=== PATIENT | female | born 1935 | race Caucasian/White ===

== ENCOUNTER 2019-07-10 12:00 | Emergency (ER) | payer OTHER, SELFPAY ==
[2019-07-10 12:07] VITALS: BP 157/78; PULSE 73; RESP 18; TEMP 36.6; O2SAT 99; BMI 36.6
--- NOTE | 2019-07-10 12:11 | DI.RAD.S_ITS ---
PROCEDURE: XR ACUTE ABDOMEN SERIES INDICATIONS: abd pain TECHNIQUE: One view chest and two views of the abdomen were acquired. COMPARISON: None. FINDINGS: Surgical changes and devices: None. Chest: Lungs are clear. Heart size is normal. No pleural effusions. No pneumoperitoneum. Abdomen: Bowel gas pattern is normal. No suspicious calcifications. Visualized solid organ contours appear normal. Bones: No suspicious bony lesions. IMPRESSION: Nonspecific bowel gas pattern, source of her abdominal pain is not seen. Dictated by: Gray Vaughan M.D. on 07/10/2019 at 13:16 Approved by: Gray Vaughan M.D. on 07/10/2019 at 13:16
[2019-07-10 12:24] LABS: Add Manual Diff / Slide Review NO; Basophils Absolute Auto 0 /uL (0-100); Basophils Percent Auto 0.6 % (0-2); Eosinophils Absolute Auto 100 /uL (0-450); Eosinophils Percent Auto 1.6 % (2-4); Hematocrit 41.7 % (36-46); Lymphocytes Absolute Auto 1700 /uL (1100-4500); Lymphocytes Percent Auto 24.6 % (25-40); Mean Corpuscular HGB Conc 33.6 % (30-36); Mean Corpuscular Hemoglobin 29.5 PG (26-34); Mean Corpuscular Volume 87.9 fL (80-100); Monocytes Absolute Auto 600 /uL (0-900); Monocytes Percent Auto 8.7 % (3-14); Neutrophils Absolute Auto 4400 /uL (1500-7000); Neutrophils Percent Auto 64.5 % (50-75); Platelet Count 273 X10^3/uL (150-400); Red Blood Cell Count 4.74 X10^6/uL (4.0-5.2); Red Cell Distribution Width 13.5 % (11.6-14.8); White Blood Cell Count 6.8 X10^3/uL (4.5-11.0)
[2019-07-10 12:35] LABS: Alanine Aminotransferase 18 IU/L (<35); Albumin 4.5 g/dL (3.5-5.0); Albumin Globulin Ratio 1.5 (1.0-2.8); Alkaline Phosphatase 56 U/L (38-126); Amylase 100 U/L (30-110); Aspartate Aminotransferase 49 IU/L (14-36); BUN Creatinine Ratio 13.3 (6-22); Bilirubin Total 0.8 mg/dL (0.2-1.3); Blood Urea Nitrogen 16 mg/dL (7-17); Calcium 9.2 mg/dL (8.4-10.2); Carbon Dioxide 24 mmol/L (22-32); Chloride 105 mmol/L (98-107); Creatine Kinase 53 U/L (30-135); Estimated Glomerular Filt Rate 43.1 mL/min (>60); Glucose 112 mg/dL (80-110); Lipase 93 U/L (23-300); Potassium 4.3 mmol/L (3.4-5.1); Total Protein 7.5 g/dL (6.3-8.2)
[2019-07-10 12:37] LABS: HEMOLYSIS 131 (0-50)
[2019-07-10 12:38] LABS: Sodium 137 mmol/L (137-145)
[2019-07-10 12:47] LABS: Troponin I < 0.012 ng/mL (0.01-0.034)
[2019-07-10] MEDS: SODIUM CHLORIDE 0.9% 1,000 ML 1000 ML IV (12:56)
[2019-07-10 13:00] VITALS: BP 165/80; PULSE 62; RESP 17; O2SAT 98
[2019-07-10 13:28] LABS: Bacteria Urine Moderate (10-30); Culture Indicated Urine Specimen Cultured; RBC Urine 0-1/HPF (0-5/HPF); Squamous Epithelial Cell Urine 1-5 /HPF (0-5/HPF); WBC Urine 5-10/HPF (0-5/HPF)
--- NOTE | 2019-07-10 13:33 | ED_ITS ---
HPI - Nausea/Vomiting/Diarrhea <DOROTEO Smith - Last Filed: 07/10/19 20:33> General Chief complaint: Nausea/Vomiting/Diarrhea Stated complaint: Suffering from Diarrhea, feeling week Time Seen by Provider: 07/10/19 12:03 Source: patient Mode of arrival: Wheelchair Limitations: no limitations History of Present Illness HPI Narrative: The patient is an 83-year-old female with history of hypothyroid who presents with a chief complaint of diarrhea for the past month. She woke up today feeling weak. She states she has had anywhere from 4-6 episodes of diarrhea per day. She has not taken anything to feel better. She has not seen a healthcare provider since her diarrhea started a month ago. She denies any fevers, abdominal pain, nausea or vomiting. She denies any chest pain or shortness of breath. She denies any dysuria urgency or frequency. She denies any falls or trauma, denies any blurry vision, weakness, numbness or tingling Related Data Home Medications Medication Instructions Recorded Confirmed Vitamin B-12 1 tab PO DAILY 07/10/19 07/10/19 Vitamin C 1 tab PO DAILY 07/10/19 07/10/19 Vitamin D3 1 cap PO DAILY 07/10/19 07/10/19 levothyroxine 50 mcg PO DAILY 07/10/19 07/10/19 multivitamin 1 tab PO DAILY 07/10/19 07/10/19 Previous Rx's Medication Instructions Recorded sulfamethoxazole-trimethoprim 1 tab PO BID #10 tab 07/10/19 [Bactrim DS] Allergies Allergy/AdvReac Type Severity Reaction Status Date / Time Penicillins Allergy Verified 07/10/19 12:07 Review of Systems <OLIVIA Smith - Last Filed: 07/10/19 20:33> Review of Systems Narrative: GENERAL: See HPI HEENT: Denies sinus pain, ear pain, sore throat, difficulty swallowing, dizziness. RESPIRATORY: Denies dyspnea, cough, wheezing, hemoptysis, sputum. CARDIOVASCULAR: Denies chest pain, palpitations, orthopnea, edema, GASTROINTESTINAL: See HPI : Denies dysuria, frequency, incontinence, hematuria, urinary retention. MUSCULOSKELETAL: denies weakness, joint pain, or bony pain SKIN: Denies rash, skin lesions, or other NEUROLOGIC: Denies weakness, headache, numbness, change in speech, confusion, seizures, incoordination. PSYCHIATRIC: No concerning psychosocial issues. 12 point review of systems is negative except for those stated above Patient History <DOROTEO Smith - Last Filed: 07/10/19 20:33> Medical History (Updated 07/10/19 @ 16:27 by DOROTEO Smith) Hypothyroid (Acute) Exam <DOROTEO Smith - Last Filed: 07/10/19 20:33> Narrative Exam Narrative: GENERAL: This is a well-nourished, well-developed patient, in no acute distress needing HEAD: Atraumatic. Normocephalic. No temporal or scalp tenderness. EYES: Pupils equal round and reactive. Extraocular motions intact. No scleral icterus. No injection or drainage. ENT: Nose without bleeding, purulent drainage or septal hematoma. Throat without erythema, tonsillar hypertrophy or exudate. Uvula midline. Airway patent. NECK: Trachea midline. No JVD or lymphadenopathy. Supple, nontender, no meningeal signs. CARDIOVASCULAR: Regular rate and rhythm RESPIRATORY: Clear to auscultation. Breath sounds equal bilaterally. No wheezes, rales, or rhonchi. No cough. No increased respiratory effort. No accessory muscle use. GASTROINTESTINAL: Abdomen soft, non-tender, nondistended. No hepato- splenomegaly, or palpable masses. No guarding. Active bowel sounds all 4 quadrants. EXTREMITIES: No clubbing, cyanosis, or edema. No joint tenderness, effusion, or edema noted. BACK: Nontender without deformity or crepitance. No flank tenderness. NEURO: AOx3. SKIN: No rash or erythema. Initial Vital Signs Initial Vital Signs: Vital Signs Temperature 97.8 F 07/10/19 12:07 Pulse Rate 73 07/10/19 12:07 Respiratory Rate 18 07/10/19 12:07 Blood Pressure 157/78 H 07/10/19 12:07 Pulse Oximetry 99 07/10/19 12:07 <Anca Demarco MD - Last Filed: 07/13/19 08:53> Initial Vital Signs Initial Vital Signs: Vital Signs Temperature 97.8 F 07/10/19 12:07 Pulse Rate 73 07/10/19 12:07 Respiratory Rate 18 07/10/19 12:07 Blood Pressure 157/78 H 07/10/19 12:07 Pulse Oximetry 99 07/10/19 12:07 Course <DOROTEO Smith - Last Filed: 07/10/19 20:33> Orders Ordered: Discontinued Medications Sodium Chloride (Normal Saline 0.9%) 1,000 mls @ 1,000 mls/hr IV BOLUS ONE Stop: 07/10/19 13:10 Last Infusion: 07/10/19 15:06 Dose: 0 mls/hr Documented by: Admin: 07/10/19 12:56 Dose: 1,000 mls/hr Documented by: OSMAR Ondansetron HCl (Zofran) 4 mg IV NOW ONE Stop: 07/10/19 12:12 Last Admin: 07/10/19 12:56 Dose: Not Given Documented by: OSMAR Vital Signs Vital signs: Vital Signs - 8 hr 07/10/19 13:00 07/10/19 14:00 07/10/19 16:12 Pulse Rate 62 67 62 Respiratory Rate 17 20 16 Blood Pressure Blood Pressure [Left Arm] 165/80 H 142/72 H 148/76 H Pulse Oximetry 98 100 100 07/10/19 16:41 Pulse Rate 67 Respiratory Rate 15 Blood Pressure 148/76 H Blood Pressure [Left Arm] Pulse Oximetry 99 <Anca Demarco MD - Last Filed: 07/13/19 08:53> Orders Ordered: Discontinued Medications Sodium Chloride (Normal Saline 0.9%) 1,000 mls @ 1,000 mls/hr IV BOLUS ONE Stop: 07/10/19 13:10 Last Infusion: 07/10/19 15:06 Dose: 0 mls/hr Documented by: Admin: 07/10/19 12:56 Dose: 1,000 mls/hr Documented by: OSMAR Ondansetron HCl (Zofran) 4 mg IV NOW ONE Stop: 07/10/19 12:12 Last Admin: 07/10/19 12:56 Dose: Not Given Documented by: OSMAR Vital Signs Vital signs: Vital Signs - 8 hr 07/10/19 13:00 07/10/19 14:00 07/10/19 16:12 Pulse Rate 62 67 62 Respiratory Rate 17 20 16 Blood Pressure Blood Pressure [Left Arm] 165/80 H 142/72 H 148/76 H Pulse Oximetry 98 100 100 07/10/19 16:41 Pulse Rate 67 Respiratory Rate 15 Blood Pressure 148/76 H Blood Pressure [Left Arm] Pulse Oximetry 99 MDM - Nausea/Vomiting/Diarrhea <Sulma Fernandez, COTTON TIPPER- - Last Filed: 07/10/19 20:33> Lab Data Result diagrams: 07/10/19 12:15 07/10/19 12:15 Labs: Lab Results 07/10/19 07/10/19 07/10/19 Range/Units 12:15 12:15 13:00 WBC 6.8 (4.5-11.0) X10^3/uL RBC 4.74 (4.0-5.2) X10^6/uL Hgb 14.0 (12.0-16.0) g/dL Hct 41.7 (36-46) % MCV 87.9 (80-100) fL MCH 29.5 (26-34) PG MCHC 33.6 (30-36) % RDW 13.5 (11.6-14.8) % Plt Count 273 (150-400) X10^3/uL Neut % (Auto) 64.5 (50-75) % Lymph % (Auto) 24.6 L (25-40) % Dunn % (Auto) 8.7 (3-14) % Eos % (Auto) 1.6 L (2-4) % Baso % (Auto) 0.6 (0-2) % Neut # (Auto) 4400 (2619-7809) /uL Lymph # (Auto) 1700 (5549-7326) /uL Dunn # (Auto) 600 (0-900) /uL Eos # (Auto) 100 (0-450) /uL Baso # (Auto) 0 (0-100) /uL Sodium 137 (137-145) mmol/L Potassium 4.3 (3.4-5.1) mmol/L Chloride 105 (98-107) mmol/L Carbon Dioxide 24 (22-32) mmol/L BUN 16 (7-17) mg/dL Creatinine 1.20 H (0.52-1.04) mg/dL Estimated GFR 43.1 L (>60) mL/min BUN/Creatinine Ratio 13.3 (6-22) Glucose 112 H (80-110) mg/dL Calcium 9.2 (8.4-10.2) mg/dL Total Bilirubin 0.8 (0.2-1.3) mg/dL AST 49 H (14-36) IU/L ALT 18 (<35) IU/L Alkaline Phosphatase 56 (38-126) U/L Total Creatine Kinase 53 (30-135) U/L CK-MB (CK-2) TNP CK-MB (CK-2) Rel Index TNP Troponin I < 0.012 (0.01-0.034) ng/mL Total Protein 7.5 (6.3-8.2) g/dL Albumin 4.5 (3.5-5.0) g/dL Globulin 3.0 (1.7-4.1) g/dL Albumin/Globulin Ratio 1.5 (1.0-2.8) Amylase 100 (30-110) U/L Lipase 93 (23-300) U/L Urine RBC 0-1/hpf (0-5/HPF) Urine WBC 5-10/hpf H (0-5/HPF) Ur Squamous Epith Cells 1-5 /hpf (0-5/HPF) Urine Bacteria Moderate (10-30) H (None) Ur Culture Indicated? Specimen cultured Stool Occult Blood (Negative) Stl C. cayetanensis PCR (Not Detect) Stool Rotavirus (PCR) (Not Detect) Stool Adenovirus (PCR) (Not Detect) Stool Astrovirus (PCR) (Not Detect) Stool Cryptosporidium PCR (Not Detect) Stl E.coli Shiga Tox PCR (Not Detect) St Sh/Enteroin Ecoli PCR (Not Detect) Stool E coli O157 PCR Stl Enterotoxigenic E PCR (Not Detect) Stool EPEC (PCR) (Not Detect) Stl E. histolytica PCR (Not Detect) Stool Giardia Lamblia PCR (Not Detect) Stool Sapovirus (PCR) (Not Detect) Stl P. shigelloides PCR (Not Detect) St Y.enterocolitica PCR (Not Detect) Stool Vibrio (PCR) (Not Detect) Stl Vibrio cholerae PCR (Not Detect) Stl Enteroaggr Ecoli PCR (Not Detect) Stl Norovirus GI/GII PCR (Not Detect) Campylobacter (PCR) (Not Detect) C. difficile Tox (PCR) (Not Detect) Salmonella (PCR) (Not Detect) 07/10/19 07/10/19 Range/Units 14:05 14:13 WBC (4.5-11.0) X10^3/uL RBC (4.0-5.2) X10^6/uL Hgb (12.0-16.0) g/dL Hct (36-46) % MCV (80-100) fL MCH (26-34) PG MCHC (30-36) % RDW (11.6-14.8) % Plt Count (150-400) X10^3/uL Neut % (Auto) (50-75) % Lymph % (Auto) (25-40) % Dunn % (Auto) (3-14) % Eos % (Auto) (2-4) % Baso % (Auto) (0-2) % Neut # (Auto) (3908-2952) /uL Lymph # (Auto) (1145-1444) /uL Dunn # (Auto) (0-900) /uL Eos # (Auto) (0-450) /uL Baso # (Auto) (0-100) /uL Sodium (137-145) mmol/L Potassium (3.4-5.1) mmol/L Chloride (98-107) mmol/L Carbon Dioxide (22-32) mmol/L BUN (7-17) mg/dL Creatinine (0.52-1.04) mg/dL Estimated GFR (>60) mL/min BUN/Creatinine Ratio (6-22) Glucose (80-110) mg/dL Calcium (8.4-10.2) mg/dL Total Bilirubin (0.2-1.3) mg/dL AST (14-36) IU/L ALT (<35) IU/L Alkaline Phosphatase (38-126) U/L Total Creatine Kinase (30-135) U/L CK-MB (CK-2) CK-MB (CK-2) Rel Index Troponin I (0.01-0.034) ng/mL Total Protein (6.3-8.2) g/dL Albumin (3.5-5.0) g/dL Globulin (1.7-4.1) g/dL Albumin/Globulin Ratio (1.0-2.8) Amylase (30-110) U/L Lipase (23-300) U/L Urine RBC (0-5/HPF) Urine WBC (0-5/HPF) Ur Squamous Epith Cells (0-5/HPF) Urine Bacteria (None) Ur Culture Indicated? Stool Occult Blood Negative (Negative) Stl C. cayetanensis PCR Not detected (Not Detect) Stool Rotavirus (PCR) Not detected (Not Detect) Stool Adenovirus (PCR) Not detected (Not Detect) Stool Astrovirus (PCR) Not detected (Not Detect) Stool Cryptosporidium PCR Not detected (Not Detect) Stl E.coli Shiga Tox PCR Not detected (Not Detect) St Sh/Enteroin Ecoli PCR Not detected (Not Detect) Stool E coli O157 PCR Not Reportable Stl Enterotoxigenic E PCR Not detected (Not Detect) Stool EPEC (PCR) Not detected (Not Detect) Stl E. histolytica PCR Not detected (Not Detect) Stool Giardia Lamblia PCR Not detected (Not Detect) Stool Sapovirus (PCR) Not detected (Not Detect) Stl P. shigelloides PCR Not detected (Not Detect) St Y.enterocolitica PCR Not detected (Not Detect) Stool Vibrio (PCR) Not detected (Not Detect) Stl Vibrio cholerae PCR Not detected (Not Detect) Stl Enteroaggr Ecoli PCR Not detected (Not Detect) Stl Norovirus GI/GII PCR Not detected (Not Detect) Campylobacter (PCR) Not detected (Not Detect) C. difficile Tox (PCR) Not detected (Not Detect) Salmonella (PCR) Not detected (Not Detect) Urine Dip Bedside Urine Glucose Negative Bedside Urine Bilirubin - Negative Bedside Urine Ketone - Negative Urine Specific Laurel 1.010 Bedside Urine Occult Blood - Negative Bedside Urine pH 6.0 Bedside Urine Protein - Negative Bedside Urine Urobilinogen - Negative Bedside Urine Nitrite - Negative Bedside Urine Leukocytes ++ 125 Esterase Imaging Data Abdominal x-ray: Radiologist's impression: [address] [address] XRay Report Signed Patient: Yoana Hill CMR#: [id number] : [id number]:[id number] Age/Sex: 83 / FDate of Service: 07/10/19 Loc: ED Accession Number: [id number] Procedure: XR acute abdomen series Ordering Provider: Sulma Fernandez PROCEDURE: XR ACUTE ABDOMEN SERIES INDICATIONS: abd pain TECHNIQUE: One view chest and two views of the abdomen were acquired. COMPARISON: None. FINDINGS: Surgical changes and devices: None. Chest: Lungs are clear. Heart size is normal. No pleural effusions. No pneumoperitoneum. Abdomen: Bowel gas pattern is normal. No suspicious calcifications. Visualized solid organ contours appear normal. Bones: No suspicious bony lesions. IMPRESSION: Nonspecific bowel gas pattern, source of her abdominal pain is not seen. Dictated by: Gray Vaughan M.D. on 07/10/2019 at 13:16 Approved by: Gray Vaughan M.D. on 07/10/2019 at 13:16 [facility] Narrative Medical decision making narrative: The patient is an 83-year-old female who presents with a chief complaint of generalized weakness, diarrhea for a month. Her lab work is grossly normal, she has no leukocytosis, no abdominal pain on exam urine is concerning for infection so she was placed on Bactrim. I discussed that her creatinine was the high end of normal, we do not have any records on her she just moved. Encourage PCP follow-up as soon as possible. Did give her contact information for the [facility] health human resource statistician. She has an overall benign exam, has no signs of systemic illness, is afebrile. She does not have an acute abdomen. Her diarrhea started immediately after she moved to the area, so she wonders if it is related to an exposure to new water or food. I encouraged her to follow up with primary care provider. Patient has no questions or concerns upon discharge and states understanding of return precautions as well as follow-up care. Discussed coming back for signs of systemic illness, abdominal pain with fever etc <Anca Demarco MD - Last Filed: 07/13/19 08:53> Lab Data Labs: Lab Results 07/10/19 07/10/19 07/10/19 Range/Units 12:15 12:15 13:00 WBC 6.8 (4.5-11.0) X10^3/uL RBC 4.74 (4.0-5.2) X10^6/uL Hgb 14.0 (12.0-16.0) g/dL Hct 41.7 (36-46) % MCV 87.9 (80-100) fL MCH 29.5 (26-34) PG MCHC 33.6 (30-36) % RDW 13.5 (11.6-14.8) % Plt Count 273 (150-400) X10^3/uL Neut % (Auto) 64.5 (50-75) % Lymph % (Auto) 24.6 L (25-40) % Dunn % (Auto) 8.7 (3-14) % Eos % (Auto) 1.6 L (2-4) % Baso % (Auto) 0.6 (0-2) % Neut # (Auto) 4400 (0272-8228) /uL Lymph # (Auto) 1700 (8862-7975) /uL Dunn # (Auto) 600 (0-900) /uL Eos # (Auto) 100 (0-450) /uL Baso # (Auto) 0 (0-100) /uL Sodium 137 (137-145) mmol/L Potassium 4.3 (3.4-5.1) mmol/L Chloride 105 (98-107) mmol/L Carbon Dioxide 24 (22-32) mmol/L BUN 16 (7-17) mg/dL Creatinine 1.20 H (0.52-1.04) mg/dL Estimated GFR 43.1 L (>60) mL/min BUN/Creatinine Ratio 13.3 (6-22) Glucose 112 H (80-110) mg/dL Calcium 9.2 (8.4-10.2) mg/dL Total Bilirubin 0.8 (0.2-1.3) mg/dL AST 49 H (14-36) IU/L ALT 18 (<35) IU/L Alkaline Phosphatase 56 (38-126) U/L Total Creatine Kinase 53 (30-135) U/L CK-MB (CK-2) TNP CK-MB (CK-2) Rel Index TNP Troponin I < 0.012 (0.01-0.034) ng/mL Total Protein 7.5 (6.3-8.2) g/dL Albumin 4.5 (3.5-5.0) g/dL Globulin 3.0 (1.7-4.1) g/dL Albumin/Globulin Ratio 1.5 (1.0-2.8) Amylase 100 (30-110) U/L Lipase 93 (23-300) U/L Urine RBC 0-1/hpf (0-5/HPF) Urine WBC 5-10/hpf H (0-5/HPF) Ur Squamous Epith Cells 1-5 /hpf (0-5/HPF) Urine Bacteria Moderate (10-30) H (None) Ur Culture Indicated? Specimen cultured Stool Occult Blood (Negative) Stl C. cayetanensis PCR (Not Detect) Stool Rotavirus (PCR) (Not Detect) Stool Adenovirus (PCR) (Not Detect) Stool Astrovirus (PCR) (Not Detect) Stool Cryptosporidium PCR (Not Detect) Stl E.coli Shiga Tox PCR (Not Detect) St Sh/Enteroin Ecoli PCR (Not Detect) Stool E coli O157 PCR Stl Enterotoxigenic E PCR (Not Detect) Stool EPEC (PCR) (Not Detect) Stl E. histolytica PCR (Not Detect) Stool Giardia Lamblia PCR (Not Detect) Stool Sapovirus (PCR) (Not Detect) Stl P. shigelloides PCR (Not Detect) St Y.enterocolitica PCR (Not Detect) Stool Vibrio (PCR) (Not Detect) Stl Vibrio cholerae PCR (Not Detect) Stl Enteroaggr Ecoli PCR (Not Detect) Stl Norovirus GI/GII PCR (Not Detect) Campylobacter (PCR) (Not Detect) C. difficile Tox (PCR) (Not Detect) Salmonella (PCR) (Not Detect) 07/10/19 07/10/19 Range/Units 14:05 14:13 WBC (4.5-11.0) X10^3/uL RBC (4.0-5.2) X10^6/uL Hgb (12.0-16.0) g/dL Hct (36-46) % MCV (80-100) fL MCH (26-34) PG MCHC (30-36) % RDW (11.6-14.8) % Plt Count (150-400) X10^3/uL Neut % (Auto) (50-75) % Lymph % (Auto) (25-40) % Dunn % (Auto) (3-14) % Eos % (Auto) (2-4) % Baso % (Auto) (0-2) % Neut # (Auto) (2069-1185) /uL Lymph # (Auto) (0690-8761) /uL Dunn # (Auto) (0-900) /uL Eos # (Auto) (0-450) /uL Baso # (Auto) (0-100) /uL Sodium (137-145) mmol/L Potassium (3.4-5.1) mmol/L Chloride (98-107) mmol/L Carbon Dioxide (22-32) mmol/L BUN (7-17) mg/dL Creatinine (0.52-1.04) mg/dL Estimated GFR (>60) mL/min BUN/Creatinine Ratio (6-22) Glucose (80-110) mg/dL Calcium (8.4-10.2) mg/dL Total Bilirubin (0.2-1.3) mg/dL AST (14-36) IU/L ALT (<35) IU/L Alkaline Phosphatase (38-126) U/L Total Creatine Kinase (30-135) U/L CK-MB (CK-2) CK-MB (CK-2) Rel Index Troponin I (0.01-0.034) ng/mL Total Protein (6.3-8.2) g/dL Albumin (3.5-5.0) g/dL Globulin (1.7-4.1) g/dL Albumin/Globulin Ratio (1.0-2.8) Amylase (30-110) U/L Lipase (23-300) U/L Urine RBC (0-5/HPF) Urine WBC (0-5/HPF) Ur Squamous Epith Cells (0-5/HPF) Urine Bacteria (None) Ur Culture Indicated? Stool Occult Blood Negative (Negative) Stl C. cayetanensis PCR Not detected (Not Detect) Stool Rotavirus (PCR) Not detected (Not Detect) Stool Adenovirus (PCR) Not detected (Not Detect) Stool Astrovirus (PCR) Not detected (Not Detect) Stool Cryptosporidium PCR Not detected (Not Detect) Stl E.coli Shiga Tox PCR Not detected (Not Detect) St Sh/Enteroin Ecoli PCR Not detected (Not Detect) Stool E coli O157 PCR Not Reportable Stl Enterotoxigenic E PCR Not detected (Not Detect) Stool EPEC (PCR) Not detected (Not Detect) Stl E. histolytica PCR Not detected (Not Detect) Stool Giardia Lamblia PCR Not detected (Not Detect) Stool Sapovirus (PCR) Not detected (Not Detect) Stl P. shigelloides PCR Not detected (Not Detect) St Y.enterocolitica PCR Not detected (Not Detect) Stool Vibrio (PCR) Not detected (Not Detect) Stl Vibrio cholerae PCR Not detected (Not Detect) Stl Enteroaggr Ecoli PCR Not detected (Not Detect) Stl Norovirus GI/GII PCR Not detected (Not Detect) Campylobacter (PCR) Not detected (Not Detect) C. difficile Tox (PCR) Not detected (Not Detect) Salmonella (PCR) Not detected (Not Detect) Urine Dip Bedside Urine Glucose Negative Bedside Urine Bilirubin - Negative Bedside Urine Ketone - Negative Urine Specific Laurel 1.010 Bedside Urine Occult Blood - Negative Bedside Urine pH 6.0 Bedside Urine Protein - Negative Bedside Urine Urobilinogen - Negative Bedside Urine Nitrite - Negative Bedside Urine Leukocytes ++ 125 Esterase Discharge Plan Departure Patient Disposition: Home Clinical Impression: Acute UTI Diarrhea Qualifiers: Diarrhea type: unspecified type Qualified Code(s): R19.7 - Diarrhea, unspecified Discharge Date/Time: 07/10/19 16:42 Activity Restrictions/Additional Instructions: Today your stool tested negative for blood, several infections such as C difficile, noro virus, Giardia, e coli etc The ova and parasite test will be back in approximately 5-7 days. We will call you if necessary. Your urine is concerning of infection so I have started you on an antibiotic. Please take this with yogurt or probiotic. Please monitor for fevers, flank pain or signs of worsening urinary tract infection. Please come back to emergency department for any acute concerns such as abdominal pain with fever, etc Please follow up with primary care provider. I have given contact information for [facility] health human resource statistician, who can help you identify primary care provider. Prescriptions: New sulfamethoxazole-trimethoprim [Bactrim DS] 800-160 mg tablet 1 tab PO BID Qty: 10 RF: 0 No Action multivitamin Tablet 1 tab PO DAILY RF: 0 levothyroxine 50 mcg Tablet 50 mcg PO DAILY RF: 0 Vitamin B-12 1 tab PO DAILY RF: 0 Vitamin C 1 tab PO DAILY RF: 0 Vitamin D3 1 cap PO DAILY RF: 0 Referrals: [facility] [Outside]
[2019-07-10 14:00] VITALS: BP 142/72; PULSE 67; RESP 20; O2SAT 100
[2019-07-10 15:15] LABS: Occult Blood 1 Negative (Negative)
[2019-07-10 15:45] LABS: Campylobacter Not Detected (Not Detect); Clostridium difficile toxin AB Not Detected (Not Detect); Enteroaggregative E.coli Not Detected (Not Detect); Enteropathogenic E.coli Not Detected (Not Detect); Enterotoxigenic E.coli It/st Not Detected (Not Detect); Plesiomonsa shigelloides Not Detected (Not Detect); Salmonella Not Detected (Not Detect); Shiga-like toxin-prod E.coli Not Detected (Not Detect); Shigella/Enteroinvasive E.coli Not Detected (Not Detect); Vibrio Not Detected (Not Detect); Vibrio cholerae Not Detected (Not Detect); Yersinia enterocolitica Not Detected (Not Detect)
[2019-07-10 15:46] LABS: Adenovirus F 40/41 Not Detected (Not Detect); Astrovirus Not Detected (Not Detect); Cryptosporidium Not Detected (Not Detect); Cyclospora cayetanensis Not Detected (Not Detect); Entamoeba histolytica Not Detected (Not Detect); Giardia lamblia Not Detected (Not Detect); Norovirus GI/GII Not Detected (Not Detect); Rotavirus A Not Detected (Not Detect); Sapovirus Not Detected (Not Detect)
[2019-07-10 16:12] VITALS: BP 148/76; PULSE 62; RESP 16; O2SAT 100
[2019-07-10 16:41] VITALS: BP 148/76; PULSE 67; RESP 15; O2SAT 99
== END 2019-07-10 16:42 | disposition home or self-care (01) ==
PROVIDERS: Emergency Provider Nurse Practitioner Family
DX: N39.0 Urinary tract infection, site not specified (principal); R19.7 Diarrhea, unspecified; R10.9 Unspecified abdominal pain
CPT/HCPCS: 36415; 74022; 80053; 81003; 81015; 82150; 82270; 82550; 83690; 84484; 85025; 87086; 87177; 87507; 93005; 96360; 96361; 99284

== ENCOUNTER → 2019-07-24 12:37 | Outpatient (CLI) | payer OTHER, SELFPAY ==
[2019-07-24 16:45] LABS: Appearance Urine UA CLEAR; Bilirubin Urine UA NEGATIVE (NEGATIVE); Color Urine UA YELLOW; Glucose Urine UA NEGATIVE (Negative); Ketones Urine UA NEGATIVE (NEGATIVE); Leukocyte Esterase Urine UA 2+ (NEGATIVE); Nitrite Urine UA NEGATIVE (Negative); Occult Blood Urine UA TRACE-LYSED (Negative); Protein Urine UA NEGATIVE (Negative); Specific Gravity Urine UA <=1.005 (1.000-1.035); Urobilinogen Urine UA 0.2 E.U./dL (0.2)
[2019-07-24 16:57] LABS: Amorphous Sediment Urine 1+; Bacteria Urine Few (2-10); Culture Indicated Urine Specimen Cultured; RBC Urine 0-1/HPF (0-5/HPF); Renal Epithelial Cells Urine 0-1/HPF (0-1/HPF); Squamous Epithelial Cell Urine 1-5 /HPF (0-5/HPF); WBC Urine 10-30/HPF (0-5/HPF)
== END ==
PROVIDERS: Visit Provider Nurse Practitioner
DX: N39.0 Urinary tract infection, site not specified (principal)
CPT/HCPCS: 81003; 81015; 87077; 87086

== ENCOUNTER 2019-08-02 01:35 | Observation (INO) | payer OTHER, SELFPAY ==
[2019-08-02] VITALS (20 sets, daily range): BP systolic 83–128; BP diastolic 34–72; PULSE 65–98; RESP 15–26; TEMP 36.3–37.7; O2SAT 92–97; BMI 36.3
--- NOTE | 2019-08-02 01:37 | DI.CT.S_ITS ---
PROCEDURE: CT HEAD/BRAIN WO CON INDICATIONS: code stroke TECHNIQUE: Noncontrast 4.5 mm thick angled axial sections acquired from the foramen magnum to the vertex, with coronal and sagittal reformats. For radiation dose reduction, the following was used: automated exposure control, adjustment of mA and/or kV according to patient size. COMPARISON: None. FINDINGS: Image quality: Excellent. CSF spaces: Basal cisterns are patent. No extra-axial fluid collections. The ventricles are symmetric in size and shape. Brain: No intracranial bleeds or masses. There is cerebral volume loss for age, with resultant ventricular and sulcal prominence. There are periventricular and deep white matter chronic small vessel ischemic changes. There is intracranial internal carotid artery atherosclerosis. Skull and face: Calvarium and visualized facial bones appear intact, without suspicious lesions. Sinuses: Visualized sinuses and mastoids are clear. IMPRESSION: 1. No acute intracranial abnormalities. 2. Cerebral volume loss and chronic microvascular ischemic changes. No significant discrepancy with the hvac mechanic radiology preliminary report. Dictated by: Christiana Ramires M.D. on 08/02/2019 at 7:34 Approved by: Christiana Ramires M.D. on 08/02/2019 at 7:35
--- NOTE | 2019-08-02 01:48 | DI.RAD.S_ITS ---
PROCEDURE: XR CHEST 1V INDICATIONS: weakness ?stroke TECHNIQUE: One view of the chest was acquired. COMPARISON: , CT, CT CHEST ABD PEL W CON, 08/02/2019, 2:32. FINDINGS: Surgical changes and devices: None. Lungs and pleura: There are linear opacities in the lung bases likely representing scarring or atelectasis. No focal consolidation. The small indistinct nodular opacities seen on subsequent CT are not well-visualized on x-ray. No pleural effusions or pneumothorax. Mediastinum: Mediastinal contours appear normal. Heart size is normal. Bones and chest wall: No suspicious bony lesions. Overlying soft tissues appear unremarkable. IMPRESSION: 1. No acute consolidation. 2. Small nodular opacities seen on subsequent CT are not well-visualized on x-ray. Dictated by: Yassine Flores M.D. on 08/02/2019 at 9:27 Approved by: Yassine Flores M.D. on 08/02/2019 at 9:31
[2019-08-02 01:54] LABS: Add Manual Diff / Slide Review NO; Basophils Absolute Auto 100 /uL (0-100); Basophils Percent Auto 0.4 % (0-2); Eosinophils Absolute Auto 200 /uL (0-450); Eosinophils Percent Auto 1.2 % (2-4); Hematocrit 39.5 % (36-46); Hemoglobin 13.4 g/dL (12.0-16.0); Lymphocytes Absolute Auto 1900 /uL (1100-4500); Mean Corpuscular HGB Conc 33.8 % (30-36); Mean Corpuscular Hemoglobin 29.4 PG (26-34); Monocytes Absolute Auto 800 /uL (0-900); Neutrophils Absolute Auto 10500 /uL (1500-7000); Neutrophils Percent Auto 78.4 % (50-75); Platelet Count 250 X10^3/uL (150-400); Red Blood Cell Count 4.54 X10^6/uL (4.0-5.2); Red Cell Distribution Width 13.8 % (11.6-14.8); White Blood Cell Count 13.4 X10^3/uL (4.5-11.0)
--- NOTE | 2019-08-02 01:54 | ED.NEUROSD ---
HPI - Neuro Symptoms/Deficit General Chief Complaint: Altered Mental Status Stated Complaint: Stroke Time Seen by Provider: 08/02/19 01:47 Source: family and EMS Mode of arrival: EMS History of Present Illness HPI Narrative: Patient is a 83-year-old female who presents with his possible stroke-like symptoms. She went to bed, got up to use the restroom heard her fall. He found her moaning. EMS found her to be weak on left side initially hypotensive IV fluids started. No significant bowel movement or urinary incontinence. Upon arrival to the ER she is generally weak on both sides seems to be moving her left side more than she was previously. Patient is able to follow commands. states that she was actually diagnosed with a UTI. She was initially seen on 07/10/2019 is diagnosed with UTI although urine culture did not grow anything she was placed on Bactrim for 5 days. She was also having some diarrhea at that time, started on BRAT diet, she was seen evaluated by PCP on 07/24/2019 again diagnosed with UTI which did grow strep viridans. She was placed on Cipro 500 twice a day for 10 days, at that time her diarrhea had improved. She states her diarrhea continues to improve and she actually had solid stools today. Previous GI panel in June was negative. She has overall been feeling weak and tired the last 1 week. denies any worsening confusion. . Related Data Home Medications Medication Instructions Recorded Confirmed levothyroxine 50 mcg PO DAILY 08/02/19 08/02/19 Allergies Allergy/AdvReac Type Severity Reaction Status Date / Time Penicillins Allergy Rash Verified 08/02/19 04:00 Review of Systems Review of Systems ROS Unobtainable: All systems reviewed & are unremarkable except as noted in HPI and below Constitutional Constitutional: Denies chills, Reports fatigue, Denies lethargy, Reports poor appetite and Reports weakness Eyes Eyes: Denies change in vision, Denies eye discharge, Denies irritation and Denies loss of vision ENT Ears, Nose, Mouth, and Throat: Denies change in voice, Denies neck pain and Denies sore throat Cardiovascular Cardiovascular: Denies chest pain, Reports syncope, Denies irregular heart rhythm, Denies lightheadedness, Denies palpitations, Denies dyspnea, Denies dyspnea on exertion and Denies orthopnea Respiratory Respiratory: Denies cough, Denies dyspnea, Denies dyspnea on exertion and Denies wheezing Gastrointestinal Gastrointestinal: Reports abdominal pain, Denies diarrhea, Denies nausea and Denies vomiting Genitourinary Genitourinary: Denies hematuria, Denies flank pain, Denies urinary incontinence and Denies urinary urgency Musculoskeletal Musculoskeletal: Denies neck pain Neurologic Neurologic: Reports syncope, Denies loss of vision and Reports weakness Endocrine Endocrine: Reports fatigue and Denies palpitations Allergic/Immunologic Allergic/Immunologic: Denies wheezing Patient History Medical History Patient denies medical problems (Acute) Social History household members: spouse Smoking Status: Never smoker alcohol intake: never Exam Initial Vital Signs Initial Vital Signs: Vital Signs Temperature 99.8 F H 08/02/19 02:05 Pulse Rate 93 H 08/02/19 02:05 Respiratory Rate 16 08/02/19 02:05 Blood Pressure 94/63 08/02/19 02:05 GENERAL: Week alert elderly female HEENT: Head atraumatic,EOMI, pupils reactive, face symmetric, dry mucous membranes CARDIOVASCULAR: Regular rate and rhythm without murmurs, rubs or gallops. RESPIRATORY: Breath sounds equal bilaterally, no wheezes rales or rhonchi. ABDOMEN: Soft, mildly diffusely tender no guarding or rebound EXTREMITIES: Normal range of motion, no clubbing or edema. Neurovascularly intact NEUROLOGICAL: Alert and oriented x4.Normal speech. Cranial nerves II through XII grossly intact. Good [id number], good [id number], strength equal bilaterally, no dysarthria or aphasia, sensation in tact to soft touch bilaterally, no visual changes, no facial droop SKIN: Warm, dry, no laceration, no petechiae, no rashes or lesions. Scores NIH Stroke Scale Level of Conciousness: Alert, keenly responsive Ask month/age: Answers both questions correctly. Open/close eyes, close hand: Performs both tasks correctly Best gaze horizontal: Normal Visual keller: No visual loss Facial palsy: Normal symetrical movement Left arm drift: No drift for full 10 sec Right arm drift: No drift for full 10 sec Left leg drift: No drift for full 10 sec Right leg drift: No drift for full 10 sec Limb ataxia: Absent Sensory on face/arms/legs: Normal, no sensory loss Best language: No aphasia, normal Dysarthria: Normal Extinction or inattention: No abnormality Total NIH Stroke scale score: 0 Course Orders Ordered: ED Orders 08/02/19 01:37 CT head/brain wo con Stat 08/02/19 01:48 XR chest 1V Stat 08/02/19 01:51 Complete Blood Count AUTO DIFF Stat Comprehensive Metabolic Panel Stat Partial Thromboplastin Time Stat Procalcitonin Stat Prothrombin Time INR Stat Thyroid Stimulating Hormone Stat Troponin & CK Cardiac Panel Stat 08/02/19 02:05 Blood Culture Stat 08/02/19 02:09 Lactate (Lactic Acid) Stat 08/02/19 02:32 CT chest abd pel w con Stat 08/02/19 04:50 Urinalysis and Microscopic Stat Acetaminophen (Tylenol) 650 mg PO Q6HR PRN PRN Reason: Fever/Mild Pain (1-3) Heparin Sodium (Porcine) (Heparin) 5,000 unit SUBCUT BID MARIANN Levothyroxine Sodium (Synthroid) 50 mcg PO 0600 MARIANN Naloxone HCl (Narcan) 0.2 mg IV Q2MIN PRN PRN Reason: Opiate Reversal Ondansetron HCl (Zofran) 4 mg IV Q8HR PRN PRN Reason: Nausea And Vomiting Discontinued Medications Sodium Chloride (Normal Saline 0.9%) 1,000 mls @ 200 mls/hr IV CONT MARIANN Last Infusion: 08/02/19 02:49 Dose: 0 mls/hr Documented by: Admin: 08/02/19 02:00 Dose: 200 mls/hr Documented by: PERICO Sodium Chloride (Normal Saline 0.9%) 1,000 mls @ 1,000 mls/hr IV BOLUS ONE Stop: 08/02/19 03:31 Last Infusion: 08/02/19 04:00 Dose: 1,000 mls/hr Documented by: Admin: 08/02/19 02:48 Dose: 1,000 mls/hr Documented by: PERICO Sodium Chloride (Normal Saline 0.9%) 1,000 mls @ 200 mls/hr IV CONT MARIANN Last Admin: 08/02/19 04:20 Dose: 200 mls/hr Documented by: FLOYD Vital Signs Vital signs: Vital Signs - 8 hr 08/02/19 02:05 08/02/19 02:15 08/02/19 02:59 Temperature 99.8 F H Pulse Rate 93 H 81 86 Respiratory Rate 16 23 16 Blood Pressure 94/63 Blood Pressure [Left Arm] 89/57 L 89/37 L Pulse Oximetry 95 93 08/02/19 03:15 08/02/19 03:20 08/02/19 03:30 Temperature Pulse Rate 79 79 76 Respiratory Rate 19 22 16 Blood Pressure Blood Pressure [Left Arm] 86/51 L 93/45 L 93/54 L Pulse Oximetry 95 96 95 08/02/19 03:45 08/02/19 04:07 08/02/19 04:15 Temperature Pulse Rate 75 75 76 Respiratory Rate 16 15 17 Blood Pressure Blood Pressure [Left Arm] 94/34 L 94/34 L 83/49 L Pulse Oximetry 94 92 93 08/02/19 04:23 08/02/19 04:30 08/02/19 04:45 Temperature Pulse Rate 75 77 81 Respiratory Rate 17 18 22 Blood Pressure Blood Pressure [Left Arm] 100/50 L 96/58 L 101/53 L Pulse Oximetry 92 93 96 08/02/19 04:52 08/02/19 05:25 Temperature Pulse Rate 80 74 Respiratory Rate 26 H 18 Blood Pressure Blood Pressure [Left Arm] 96/58 L 101/58 L Pulse Oximetry 96 93 MDM - Neuro Symptoms/Deficit Lab Data Attestation: I reviewed the patient's lab results. Result diagrams: 08/02/19 01:51 08/02/19 01:51 Labs: Lab Results 08/02/19 08/02/19 08/02/19 Range/Units 01:51 01:51 01:51 WBC 13.4 H (4.5-11.0) X10^3/uL RBC 4.54 (4.0-5.2) X10^6/uL Hgb 13.4 (12.0-16.0) g/dL Hct 39.5 (36-46) % MCV 87.0 (80-100) fL MCH 29.4 (26-34) PG MCHC 33.8 (30-36) % RDW 13.8 (11.6-14.8) % Plt Count 250 (150-400) X10^3/uL Neut % (Auto) 78.4 H (50-75) % Lymph % (Auto) 14.0 L (25-40) % [place] % (Auto) 6.0 (3-14) % Eos % (Auto) 1.2 L (2-4) % Baso % (Auto) 0.4 (0-2) % Neut # (Auto) 85139 H (1263-5632) /uL Lymph # (Auto) 1900 (3449-6334) /uL [place] # (Auto) 800 (0-900) /uL Eos # (Auto) 200 (0-450) /uL Baso # (Auto) 100 (0-100) /uL PT 12.1 (10.1-12.7) SECONDS INR 1.0 (0.9-1.3) APTT 26 L (26.4-36.2) SECONDS Sodium (137-145) mmol/L Potassium (3.4-5.1) mmol/L Chloride (98-107) mmol/L Carbon Dioxide (22-32) mmol/L BUN (7-17) mg/dL Creatinine (0.52-1.04) mg/dL Estimated GFR (>60) mL/min BUN/Creatinine Ratio (6-22) Glucose (80-110) mg/dL Lactate (0.7-2.1) mmol/L Calcium (8.4-10.2) mg/dL Total Bilirubin (0.2-1.3) mg/dL AST (14-36) IU/L ALT (<35) IU/L Alkaline Phosphatase (38-126) U/L Total Creatine Kinase 38 (30-135) U/L CK-MB (CK-2) TNP CK-MB (CK-2) Rel Index TNP Troponin I < 0.012 (0.01-0.034) ng/mL Total Protein (6.3-8.2) g/dL Albumin (3.5-5.0) g/dL Globulin (1.7-4.1) g/dL Albumin/Globulin Ratio (1.0-2.8) Procalcitonin (<0.5) ng/mL TSH (0.47-4.68) uIU/mL Urine Color Urine Appearance Urine pH (4.5-8.0) Ur Specific [place] (1.000-1.035) Urine Protein (Negative) Urine Glucose (UA) (Negative) g/dL Urine Ketones (NEGATIVE) Urine Occult Blood (Negative) Urine Nitrate (Negative) Urine Bilirubin (NEGATIVE) Urine Urobilinogen (0.2) E.U./dL Ur Leukocyte Esterase (NEGATIVE) Urine RBC (0-5/HPF) Urine WBC (0-5/HPF) Urine Bacteria (None) Ur Culture Indicated? Micro UA Comment 08/02/19 08/02/19 08/02/19 Range/Units 01:51 01:51 01:51 WBC (4.5-11.0) X10^3/uL RBC (4.0-5.2) X10^6/uL Hgb (12.0-16.0) g/dL Hct (36-46) % MCV (80-100) fL MCH (26-34) PG MCHC (30-36) % RDW (11.6-14.8) % Plt Count (150-400) X10^3/uL Neut % (Auto) (50-75) % Lymph % (Auto) (25-40) % [place] % (Auto) (3-14) % Eos % (Auto) (2-4) % Baso % (Auto) (0-2) % Neut # (Auto) (5947-3174) /uL Lymph # (Auto) (8484-9278) /uL [place] # (Auto) (0-900) /uL Eos # (Auto) (0-450) /uL Baso # (Auto) (0-100) /uL PT (10.1-12.7) SECONDS INR (0.9-1.3) APTT (26.4-36.2) SECONDS Sodium 137 (137-145) mmol/L Potassium 3.4 (3.4-5.1) mmol/L Chloride 105 (98-107) mmol/L Carbon Dioxide 23 (22-32) mmol/L BUN 18 H (7-17) mg/dL Creatinine 1.20 H (0.52-1.04) mg/dL Estimated GFR 43.1 L (>60) mL/min BUN/Creatinine Ratio 15.0 (6-22) Glucose 175 H (80-110) mg/dL Lactate (0.7-2.1) mmol/L Calcium 9.2 (8.4-10.2) mg/dL Total Bilirubin 0.5 (0.2-1.3) mg/dL AST 36 (14-36) IU/L ALT 16 (<35) IU/L Alkaline Phosphatase 67 (38-126) U/L Total Creatine Kinase (30-135) U/L CK-MB (CK-2) CK-MB (CK-2) Rel Index Troponin I (0.01-0.034) ng/mL Total Protein 6.8 (6.3-8.2) g/dL Albumin 4.1 (3.5-5.0) g/dL Globulin 2.7 (1.7-4.1) g/dL Albumin/Globulin Ratio 1.5 (1.0-2.8) Procalcitonin < 0.05 (<0.5) ng/mL TSH 8.44 H (0.47-4.68) uIU/mL Urine Color Urine Appearance Urine pH (4.5-8.0) Ur Specific [place] (1.000-1.035) Urine Protein (Negative) Urine Glucose (UA) (Negative) g/dL Urine Ketones (NEGATIVE) Urine Occult Blood (Negative) Urine Nitrate (Negative) Urine Bilirubin (NEGATIVE) Urine Urobilinogen (0.2) E.U./dL Ur Leukocyte Esterase (NEGATIVE) Urine RBC (0-5/HPF) Urine WBC (0-5/HPF) Urine Bacteria (None) Ur Culture Indicated? Micro UA Comment 08/02/19 08/02/19 Range/Units 02:09 04:50 WBC (4.5-11.0) X10^3/uL RBC (4.0-5.2) X10^6/uL Hgb (12.0-16.0) g/dL Hct (36-46) % MCV (80-100) fL MCH (26-34) PG MCHC (30-36) % RDW (11.6-14.8) % Plt Count (150-400) X10^3/uL Neut % (Auto) (50-75) % Lymph % (Auto) (25-40) % [place] % (Auto) (3-14) % Eos % (Auto) (2-4) % Baso % (Auto) (0-2) % Neut # (Auto) (4144-7109) /uL Lymph # (Auto) (2304-7410) /uL [place] # (Auto) (0-900) /uL Eos # (Auto) (0-450) /uL Baso # (Auto) (0-100) /uL PT (10.1-12.7) SECONDS INR (0.9-1.3) APTT (26.4-36.2) SECONDS Sodium (137-145) mmol/L Potassium (3.4-5.1) mmol/L Chloride (98-107) mmol/L Carbon Dioxide (22-32) mmol/L BUN (7-17) mg/dL Creatinine (0.52-1.04) mg/dL Estimated GFR (>60) mL/min BUN/Creatinine Ratio (6-22) Glucose (80-110) mg/dL Lactate 1.8 (0.7-2.1) mmol/L Calcium (8.4-10.2) mg/dL Total Bilirubin (0.2-1.3) mg/dL AST (14-36) IU/L ALT (<35) IU/L Alkaline Phosphatase (38-126) U/L Total Creatine Kinase (30-135) U/L CK-MB (CK-2) CK-MB (CK-2) Rel Index Troponin I (0.01-0.034) ng/mL Total Protein (6.3-8.2) g/dL Albumin (3.5-5.0) g/dL Globulin (1.7-4.1) g/dL Albumin/Globulin Ratio (1.0-2.8) Procalcitonin (<0.5) ng/mL TSH (0.47-4.68) uIU/mL Urine Color Straw Urine Appearance Clear Urine pH 5.5 (4.5-8.0) Ur Specific [place] <=1.005 (1.000-1.035) Urine Protein Negative (Negative) Urine Glucose (UA) Negative (Negative) g/dL Urine Ketones Negative (NEGATIVE) Urine Occult Blood Trace-lysed (Negative) Urine Nitrate Negative (Negative) Urine Bilirubin Negative (NEGATIVE) Urine Urobilinogen 0.2 (0.2) E.U./dL Ur Leukocyte Esterase Negative (NEGATIVE) Urine RBC None seen (0-5/HPF) Urine WBC None seen (0-5/HPF) Urine Bacteria None seen (None) Ur Culture Indicated? Cult not indicated Micro UA Comment Microscopic normal Imaging Data CT scan - head: Radiologist's impression: mini shifter report: No significant abnormalities CT scan - chest: Radiologist's impression: Preliminary report no evidence for any clinically significant hemorrhage/hematoma Appendix not visualized on exam this does not exclude the presence of acute appendicitis however the lack of pericecal inflammation makes appendicitis extremely unlikely. Intrapulmonary noncalcified reticular nodular area or unclear etiology and chronicity ECG Data Attestation: I personally reviewed and interpreted this ECG as follows: Prior ECG tracings: not available for review Interpretation: Sinus rhythm rate 77 p.r. interval 186 QRS [address] elevation depression or T-wave inversion MDM Narrative Medical decision making narrative: Patient remained persistently hypotensive with a systolic below 100 weak and tired is she has received now 2 L of IV fluids no focal deficits head CT is negative. However unclear why she is still hypotensive lactic acid is negative along with procalcitonin she should be at the end of his 10 day course of ciprofloxacin for UTI. Still awaiting urine. All previous of blood pressures from previous visits show systolic 140. Urine is negative procalcitonin negative Cipro was an appropriate antibiotic. Unclear why patient continues to be hypotensive. However I do think that her hypotension is why she passed out. She had an DIANNE of 0 upon arrival he continues to be extremely weak not her baseline. Family states that she has progressively gotten weaker over the last few months and definitely over the last 1-2 weeks TSH is elevated at 8.44. Discussed case with Dotty GAGE, accepts for observation Discharge Plan Departure Patient Disposition: Admitted as Observation Clinical Impression: Acute hypotension Syncope Qualifiers: Syncope type: unspecified Qualified Code(s): R55 - Syncope and collapse Discharge Date/Time: 08/02/19 05:56 Admit Date/Time: 08/02/19 05:28 Admit Provider: Nona Storm
[2019-08-02 01:58] LABS: Prothrombin Time 12.1 SECONDS (10.1-12.7)
[2019-08-02 02:00] LABS: PTT Partial Thromboplastin Tim 26 SECONDS (26.4-36.2)
[2019-08-02] MEDS: SODIUM CHLORIDE 0.9% 1,000 ML 200 ML IV ×2 (02:00→04:20)
[2019-08-02 02:03] LABS: Creatine Kinase 38 U/L (30-135)
[2019-08-02 02:04] LABS: Alanine Aminotransferase 16 IU/L (<35); Albumin 4.1 g/dL (3.5-5.0); Albumin Globulin Ratio 1.5 (1.0-2.8); Alkaline Phosphatase 67 U/L (38-126); Aspartate Aminotransferase 36 IU/L (14-36); Bilirubin Total 0.5 mg/dL (0.2-1.3); Blood Urea Nitrogen 18 mg/dL (7-17); Calcium 9.2 mg/dL (8.4-10.2); Carbon Dioxide 23 mmol/L (22-32); Chloride 105 mmol/L (98-107); Estimated Glomerular Filt Rate 43.1 mL/min (>60); Globulin 2.7 g/dL (1.7-4.1); Glucose 175 mg/dL (80-110); HEMOLYSIS < 15 (0-50); Potassium 3.4 mmol/L (3.4-5.1); Sodium 137 mmol/L (137-145); Total Protein 6.8 g/dL (6.3-8.2)
[2019-08-02 02:16] LABS: Troponin I < 0.012 ng/mL (0.01-0.034)
[2019-08-02 02:23] LABS: Procalcitonin < 0.05 ng/mL (<0.5)
--- NOTE | 2019-08-02 02:32 | DI.CT.S_ITS ---
PROCEDURE: CT CHEST ABD PEL W CON INDICATIONS: weakness, hypotensive TECHNIQUE: After the administration of intravenous contrast, 5 mm thick sections acquired from the lung apices to the symphysis. 2.5 mm thick coronal and sagittal reformats were acquired. Additional 7 mm thick coronal maximum intensity projection (MIP) reformats acquired through the lungs. Optional 10-minute delayed imaging may be performed from the kidneys to the bladder. For radiation dose reduction, the following was used: automated exposure control, adjustment of mA and/or kV according to patient size. COMPARISON: None. FINDINGS: Image quality: Excellent. CHEST: Lungs: No acute consolidation. No pleural effusion or pneumothorax. Diffuse ill-defined scarring and atelectasis. Numerous subcentimeter pulmonary nodules seen bilaterally, with partial groundglass appearance. These involve both upper and lower lobes. Please see montage image for traffic workforce representative examples. Mediastinum: No mediastinal hematomas. Heart size is normal. No pericardial effusion. Thoracic aorta and pulmonary arteries demonstrate normal size and enhancement. No mediastinal or hilar adenopathy. Esophagus is normal in caliber. Small hiatal hernia. Chest wall: No rib fractures. No subcutaneous emphysema. No axillary or supraclavicular adenopathy. Thyroid gland negative. ABDOMEN: Solid organs: Presumed hepatic cysts present in the left lobe on image 49 series 2. Gallbladder negative. Biliary system is non-dilated. Pancreas enhances normally, without transection. Spleen is normal in size and enhancement, without lacerations. No adrenal hematomas. Mild bilateral perinephric stranding. No hydronephrosis Peritoneum and bowel: No free fluid or air. Unenhanced bowel loops demonstrate normal wall thickness and caliber. Colonic diverticulosis. There is large amount of stool throughout the colon. Appendix is not clearly identified however no suspicious pericecal inflammatory changes are seen. Nodes and vessels: No retroperitoneal or mesenteric adenopathy. Aorta and inferior vena cava are normal in size and enhancement. Miscellaneous: No ventral hernias. PELVIS: Genitourinary: Bladder wall thickness is normal. Miscellaneous: No inguinal hernias or adenopathy. Bones: Pelvic ring and hip joints appear intact. No vertebral compression fractures. IMPRESSION: Numerous ill-defined subcentimeter bilateral upper and lower lobe pulmonary nodules, which could be inflammatory or infectious in nature given partial groundglass appearance. However, cannot exclude metastatic or neoplastic possibilities therefore recommend short interval CT chest followup after treatment to document resolution. Presumed hepatic cyst. Elsewhere, no acute process. Mild-moderate stool, raising possibility of constipation No large hemorrhage or hematoma identified Appendix is not clearly identified however no suspicious pericecal inflammatory changes are seen. Small hiatal hernia Findings concordant with the preliminary study interpretation provided at the time of the exam. Dictated by: Naeem Bojorquez M.D. on 08/02/2019 at 8:13 Approved by: Naeem Bojorquez M.D. on 08/02/2019 at 8:38
[2019-08-02 02:33] LABS: Lactate (Lactic Acid) 1.8 mmol/L (0.7-2.1)
[2019-08-02] MEDS: SODIUM CHLORIDE 0.9% 1,000 ML 1000 ML IV (02:48)
[2019-08-02 04:56] LABS: Appearance Urine UA CLEAR; Bacteria Urine None Seen; Bilirubin Urine UA NEGATIVE (NEGATIVE); Glucose Urine UA NEGATIVE (Negative); Ketones Urine UA NEGATIVE (NEGATIVE); Leukocyte Esterase Urine UA NEGATIVE (NEGATIVE); Nitrite Urine UA NEGATIVE (Negative); Occult Blood Urine UA TRACE-LYSED (Negative); Protein Urine UA NEGATIVE (Negative); RBC Urine None Seen (0-5/HPF); Specific Gravity Urine UA <=1.005 (1.000-1.035); Urobilinogen Urine UA 0.2 E.U./dL (0.2); WBC Urine None Seen (0-5/HPF)
[2019-08-02 05:05] LABS: Color Urine UA Straw; pH Urine UA 5.5 (4.5-8.0)
[2019-08-02 05:07] LABS: Culture Indicated Urine Cult Not Indicated; Urine Comments Microscopic Normal
[2019-08-02 06:05] LABS: Thyroid Stimulating Hormone 8.44 uIU/mL (0.47-4.68)
[2019-08-02] MEDS: LEVOTHYROXINE 50 MCG TABLET PO (06:56)
--- NOTE | 2019-08-02 07:12 | PC.ADMIT ---
Addendum entered by Ry Garza R.N. 08/02/19 07:17: Patient NIH on admission was 0. Original Note: Safe handoff from [facility] ED. Patient arrived via stretcher at 0605, safe transfer to bed. Patient denies pain, lung sounds clear, Pt is hypotensive 106/58, P 78. Tele placed. High fall risk. Patient was educated about the use of call light, bed is low and locked and call light is within reach. Patient is alert and oriented, but complains of being weak. [id number] [facility] Unit A Admission Note: The patient,Yoana Hill,83 y/o, was given written information regarding hospital policies, unit procedures and contact persons. Patient's smoking status: Never smoker. Vital Signs - 8 hr 08/02/19 02:05 08/02/19 02:15 08/02/19 02:59 Temperature 99.8 F H Pulse Rate 93 H 81 86 Pulse Rate [Orthostatic Lying] Pulse Rate [Orthostatic Sitting] Pulse Rate [Orthostatic Standing] Respiratory Rate 16 23 16 Blood Pressure 94/63 Blood Pressure [Left Arm] 89/57 L 89/37 L Blood Pressure [Orthostatic Lying] Blood Pressure [Orthostatic Sitting] Blood Pressure [Orthostatic Standing] Pulse Oximetry 95 93 08/02/19 03:15 08/02/19 03:20 08/02/19 03:30 Temperature Pulse Rate 79 79 76 Pulse Rate [Orthostatic Lying] Pulse Rate [Orthostatic Sitting] Pulse Rate [Orthostatic Standing] Respiratory Rate 19 22 16 Blood Pressure Blood Pressure [Left Arm] 86/51 L 93/45 L 93/54 L Blood Pressure [Orthostatic Lying] Blood Pressure [Orthostatic Sitting] Blood Pressure [Orthostatic Standing] Pulse Oximetry 95 96 95 08/02/19 03:45 08/02/19 04:07 08/02/19 04:15 Temperature Pulse Rate 75 75 76 Pulse Rate [Orthostatic Lying] Pulse Rate [Orthostatic Sitting] Pulse Rate [Orthostatic Standing] Respiratory Rate 16 15 17 Blood Pressure Blood Pressure [Left Arm] 94/34 L 94/34 L 83/49 L Blood Pressure [Orthostatic Lying] Blood Pressure [Orthostatic Sitting] Blood Pressure [Orthostatic Standing] Pulse Oximetry 94 92 93 08/02/19 04:23 08/02/19 04:30 08/02/19 04:45 Temperature Pulse Rate 75 77 81 Pulse Rate [Orthostatic Lying] Pulse Rate [Orthostatic Sitting] Pulse Rate [Orthostatic Standing] Respiratory Rate 17 18 22 Blood Pressure Blood Pressure [Left Arm] 100/50 L 96/58 L 101/53 L Blood Pressure [Orthostatic Lying] Blood Pressure [Orthostatic Sitting] Blood Pressure [Orthostatic Standing] Pulse Oximetry 92 93 96 08/02/19 04:52 08/02/19 05:25 08/02/19 05:55 Temperature Pulse Rate 80 74 76 Pulse Rate [Orthostatic Lying] Pulse Rate [Orthostatic Sitting] Pulse Rate [Orthostatic Standing] Respiratory Rate 26 H 18 18 Blood Pressure 91/60 Blood Pressure [Left Arm] 96/58 L 101/58 L Blood Pressure [Orthostatic Lying] Blood Pressure [Orthostatic Sitting] Blood Pressure [Orthostatic Standing] Pulse Oximetry 96 93 94 08/02/19 06:06 Temperature 98.7 F Pulse Rate 78 Pulse Rate [Orthostatic Lying] 78 Pulse Rate [Orthostatic Sitting] 85 Pulse Rate [Orthostatic Standing] 98 H Respiratory Rate 18 Blood Pressure 106/58 L Blood Pressure [Left Arm] Blood Pressure [Orthostatic Lying] 106/58 L Blood Pressure [Orthostatic Sitting] 118/50 L Blood Pressure [Orthostatic Standing] 120/72 Pulse Oximetry 95
--- NOTE | 2019-08-02 07:52 | DI.MRI.S_ITS ---
PROCEDURE: MR STROKE Pre- and post-contrast brain MRI, non-contrast brain MR angiogram, pre- and postcontrast neck MR angiogram INDICATIONS: unresponsive, left sided weakness TECHNIQUE: Brain: Noncontrast axial T1 spin echo, axial T2 fast spin echo, sagittal and axial FLAIR, coronal T2 fast spin echo, axial gradient echo, axial diffusion and ADC through the brain. After the administration of contrast, axial 3D VIBE of the cranial vasculature and brain. Brain MRA: Non-contrast 3-D time of flight MR angiogram, with multiple evtirxf-jbqrvlvua-frojrgrbiq (MIP) reformats performed. Neck MRA: Axial and sagittal TruFISP through the neck. Coronal dynamic MR angiogram during administration of contrast in the arterial and venous phases, with 3-dimenstional nonxmhc-iylbvbtvb-dkcuxerjdt (MIP) reformats constructed from subtraction images. COMPARISON: [facility], CT, CT HEAD/BRAIN WO CON, 08/02/2019, 1:34. FINDINGS: Image quality: Excellent. BRAIN: CSF spaces: Ventricles are normal in size and shape. Basal cisterns are patent. No extra-axial fluid collections. Brain: There is a tiny focus of abnormal diffusion is within the right superior thalamus, as on series 26 image 63. There is associated dark signal seen on the ADC map, as on series 27 image 13. No intracranial bleeds or mass effects. Brain parenchymal volume loss is seen. Chronic small vessel ischemic change can be seen. Jensen-white matter interface is normal. Brainstem appears normal. Normal intravascular flow voids are present. No abnormal intracranial enhancement. Skull and face: Calvarial marrow signal is normal. Orbits appear normal. Sinuses: There is a mucous retention cyst seen within the anterior left maxillary sinus. The paranasal sinuses otherwise appear clear. No abnormal fluid is seen within the mastoid air cells. BRAIN MR ANGIOGRAM: Anterior circulation: Intracranial internal carotid arteries are normal in size and enhancement. There is a diminutive right A1 segment, with a corresponding robust left A1 segment. This is considered to be a normal developmental variant of the [place] of [place], of typically no clinical consequence. The flow within the paired anterior cerebral arteries is otherwise normal and symmetric. The flow within the middle cerebral arteries is normal and symmetric. The anterior communicating artery is seen. No stenoses, occlusions, or aneurysms. Posterior circulation: The visualized portions of the vertebral arteries demonstrate normal caliber, and join to form a normal appearing basilar artery. There is a prominent right posterior communicating artery seen, with an accompanying diminutive right P1 segment. This is attributed to a type origin of the right posterior cerebral artery, which is considered to be a normal developmental variant of typically no clinical consequence. The flow within the posterior cerebral arteries is normal and symmetric. No stenoses, occlusions, or aneurysms. NECK MR ANGIOGRAM: Carotids: Great vessels demonstrate a conventional anatomy as they arise from the aortic arch. The origins of the common carotid arteries appear patent. The calibers and courses of both common carotid arteries are normal. The bifurcation regions appear normal bilaterally. The internal carotid arteries demonstrate normal course and caliber. Posterior circulation: The origins of the vertebral arteries appear patent. Note is made of a direct origin of the left vertebral artery from the aortic arch itself, which is considered to be a developmental variant. More superior portions of both vertebral arteries demonstrate normal course and caliber, and join to form a normal appearing basilar artery. Miscellaneous: Subclavian arteries appear patent. Pre-contrast images through the neck show no soft tissue abnormalities. IMPRESSION: BRAIN MRI: Tiny focus of acute or subacute infarction involving the superior right thalamus. Note is made of age-appropriate brain parenchymal volume loss and chronic small vessel ischemic changes. No masses or abnormal enhancement can be seen. BRAIN MR ANGIOGRAM: No significant intracranial arterial abnormality is seen. No occlusions or significant stenosis can be seen. Wilson of [place] developmental anomalies are incidentally noted. NECK MR ANGIOGRAM: Within the arteries of the neck, no hemodynamically significant stenosis can be seen. Dictated by: Kobe Wang M.D. on 08/02/2019 at 11:51 Approved by: Kobe Wang M.D. on 08/02/2019 at 11:57
--- NOTE | 2019-08-02 07:53 | DI.ECHO.S_ITS ---
[place] +---------+ Hospital +---------+ : : [address] : : : : [phone] : : : : Phone: [phone]+ Echocardiogram Report + + :Name: CON CARBAJAL Study Date: 08/02/2019 Height: 62 in : :[facility] Weight: 198 lb: : Gender: Female BSA: 1.9 m2 : :: 1935 Age: 83 yrs BP: 95/51 mmHg: :Reason For Study: STROKE : : Performed By: [facility] Staff : :Referring: ELOY GONZALES : + + Interpretation Summary The left ventricle is normal in size. The ejection fraction is estimated to be 50-55%. There is no obvious LV thrombus. The right ventricle is normal size. The right ventricular systolic function is normal. The interatrial septum is intact with no evidence for an atrial septal defect. Injection of contrast documented no interatrial shunt. There is mild tricuspid regurgitation. The right ventricular systolic pressure is estimated to be at least 31 mmHg based on an estimated right atrial pressure of 3 mm Hg. Procedure: A two-dimensional transthoracic echocardiogram with color flow and Doppler was performed. The study quality was technically adequate. A saline contrast injection was performed to assess for cardiac shunting. A contrast injection of Definity was performed to improve assessment of LV function. The patient was in normal sinus rhythm during the exam. Left Ventricle: The left ventricle is normal in size. There is normal left ventricular wall thickness. There is no thrombus. The ejection fraction is estimated to be 50-55%. There are no focal wall motion abnormalities. Diastolic parameters suggest a relaxation abnormality of the left ventricle, consistent with probable normal filling pressures. Right Ventricle: The right ventricle is normal size. The right ventricular systolic function is normal. Atria: The left atrial size is normal. The right atrium is mildly dilated. The interatrial septum is intact with no evidence for an atrial septal defect. Injection of contrast documented no interatrial shunt. Mitral Valve: There is mild mitral annular calcification. There is trace mitral regurgitation. Aortic Valve: The aortic valve is trileaflet. The aortic valve opens well. There is no aortic valve stenosis. No aortic regurgitation is present. Tricuspid Valve: The tricuspid valve is not well visualized, but is grossly normal. There is mild tricuspid regurgitation. The right ventricular systolic pressure is estimated to be at least 31 mmHg based on an estimated right atrial pressure of 3 mm Hg. Pulmonic Valve: The pulmonic valve is not well visualized. There is trace pulmonic regurgitation. Great Vessels: The aortic root is normal size. The dimensions of the ascending aorta are normal. The aortic arch could not be visualized. The pulmonary artery is normal size. The IVC is of normal diameter and collapses greater than 50% with a sniff. This suggests a low right atrial pressure of 3 mm Hg. Pericardium/ Pleura There is no pericardial effusion. There is an anterior echo-free space consistent with a fat pad. There is no pleural effusion. MMode/2D Measurements & Calculations LVIDd: 4.6 cm LVOT diam: 1.9 cm LVIDs: 3.3 cm Ao root diam: 2.9 cm FS: 28.4 % Aortic Jxn: 2.5 cm EPSS: 0.83 cm IVSd: 1.0 cm LVPWd: 1.1 cm LV pichardo. diameter/BSA (cm/m^2): 2.4 LV sys. diameter/BSA (cm/m^2): 1.7 LA A2 area: 20.2 cm2 RA long axis: 5.0 cm LA A4 area: 15.7 cm2 RA area: 16.8 cm2 LA length (vol): 5.1 cm RA vol: 47.6 ml LA vol: 52.5 ml RA : 25.0 ml/m2 LA vol index: 27.6 ml/m2 TAPSE: 2.1 cm Doppler Measurements & Calculations Ao V2 max: 125.4 cm/sec LVOT Max Stephane: 80.0 cm/sec Ao V2 mean: 93.2 cm/sec LV V1 max P.6 mmHg Ao max P.3 mmHg LV V1 VTI: 17.4 cm Ao mean P.8 mmHg IVON(I,D): 1.6 cm2 Ao V2 VTI: 29.5 cm IVON(V,D): 1.8 cm2 sev ratio: 0.59 IVON indexed to BSA (cm^2/m^2): 0.86 MV E max stephane: 71.8 cm/sec TR max stephane: 242.1 cm/sec MV A max stephane: 74.4 cm/sec TR max P.6 mmHg MV E/A: 0.96 PA V2 max: 60.0 cm/sec Med Peak E' Stephane: 9.2 cm/sec PA V2 mean: 46.3 cm/sec E/E' med: 7.8 PA mean P.94 mmHg Lat Peak E' Stephane: 6.0 cm/sec PA Accel Time: 0.13 sec E/E' lat: 12.0 E/e' average: 9.9 MV dec time: 0.20 sec SVLVOT): 48.1 ml Reading Physician:02:51 PM
[2019-08-02 08:02] LABS: Magnesium 1.8 mg/dL (1.6-2.3)
[2019-08-02 08:19] LABS: Free T4, Direct Thyroxine 1.12 ng/dL (0.78-2.19)
--- NOTE | 2019-08-02 11:54 | PT.IIE ---
Medical History (Last Reviewed 08/02/19 @ 04:22 by Linda Lemons DO) Patient denies medical problems (Acute) Physical Therapy Inpatient Evaluation/Re-Eval M1 PT/OT-IP Prior Functional Status Start: 08/02/19 08:20 Freq: NEEDED Status: Active Protocol: Document 08/02/19 08:37 JG (Rec: 08/02/19 11:33 [id number]) Medical Review Prior Functional Status Medical History Reviewed Yes Communication No noted cognitive or communication deficits. Mobility and Gait Pt reports I with mobility and gait. Pt states she has had limited activity tolerance for the last year d/t fatigue which has inc'd recently since she has been sick. Activities of Daily Living and IADL's Pt reports I with ADLs and IADLs prior to hospitalization . Prior Functional Level (Other details) Pt was able to drive prior to hospitalization. Social History Household Members spouse Living Arrangements Apartment/Condo Number of Floors (Floors) One Floor Number of Stairs To Enter/Railing? 3 GIGI (B railing) Home Environment Standard Height Toilet,High Toilet,Walk in Shower,Tub/ Shower Home Equipment Hand Held Shower Employment Status Retired Additional Social History Comment Pt lives in one story, ground floor apartment in [place] with her . Pt states her is physically able to assist her. Pt's daughter Veronica also lives nearby. She recently fractured her foot and is unable to assist with pt's mobility but states her will be available to help as well. Pt has limited home equipment and currently has no ADs at home. M2 PT-IP Current Condition Start: 08/02/19 08:20 Freq: NEEDED Status: Active Protocol: Document 08/02/19 08:37 JG (Rec: 08/02/19 11:33 [id number]) Physical Therapy Current Condition Current Condition Evaluation Date 08/02/19 Treatment Diagnosis Syncopal episode, difficulty walking, limited activity tolerance Onset Date 08/02/19 Weight Bearing Status Weight Bearing Status Full Weight Bearing M3 PT-IP Subjective Start: 08/02/19 08:20 Freq: NEEDED Status: Active Protocol: Document 08/02/19 08:37 JG (Rec: 08/02/19 11:33 [id number]) Subjective Physical Therapy Visit Type Type Initial Evaluation Visit Start Time 08:37 Visit Stop Time 09:04 Total Visit Minutes 27 Notes IE led by SPT Sindy, supervised by PT Alonso. Pt's daughter Veronica present for IE. Number of [employer]PER[employer] Visits 0 Physical Therapy Visit Comments Patient Comments I feel ok, just weak. I don't really remember what happened last night but my said I fainted. Patient Goals Return home Therapy Pain Assessment Pain When Pain Assessed At Rest Pain Present Pain Present Denied Pain M4 PT-IP Mobility and Gait Start: 08/02/19 08:20 Freq: NEEDED Status: Active Protocol: Document 08/02/19 08:37 (Rec: 08/02/19 11:33 [id number]) PT-Bed Mobility Assessment Rolling Type of Rolling Roll to Left Level of Assist Minimal Assistance Supine to Sit Supine to Sit Minimal Assistance,1 Person Assistance Scooting Scooting to Edge of Bed Contact Guard Assistance PT-Transfer Assessment Sit to and From Stand Sit to and from Stand Contact Guard Assistance,Use of Upper Extremities Equipment Transfer Assistive Device Gait Belt,Front Wheeled Walker Orthotic/Prosthetic Devices or Brace: No Transfers Transfer Destination Chair,Toilet Transfer Technique ambulate with FWW Transfer Ability Level of Assist Contact Guard Assistance,Use of Upper Extremities Comments Mobility Comments Pt in bed with HOB elevated upon assessment. Baseline BP 121/61, HR 77. Pt required min A with cuing to roll to side and push with UEs for rolling in bed and supine to sit. Initially sitting EOB pt's BP dropped to 109/52 but pt denied dizziness or nausea. After sitting EOB for ~5 minutes pt's BP returned to 127/64. Pt states that having her BP taken hurts because it squeezes so tight. Pt requested to go to the bathroom. Pt able to sit to stand with CGA and ambulate to the bathroom with the FWW CGA . Pt completed sit to/from stand to toilet with CGA and UE assist with grab bar. Pt voided and was able to perform pericare I. Pt ambulated around the room and back to the chair, completed stand to sit CGA with cuing to use armrests for support. Upon return to chair, pt's BP dropped to 94/52 (taken at wrist) but denied dizziness or nausea. Pt's BP stable after sitting in chair for ~5 minutes at 95/51. Pt left in chair with call light and needs within reach, daughter in room. Alerted NORBERTO Rodarte to pt's BP and requested a chair alarm for the pt. Gait Assessment Gait Gait Assistance Required: Contact Guard Assist,Minimum Assistance Distance (Feet) 30 Able to Maintain Weight Bearing Status Yes During Gait Assistive Devices Assistive Device None,Gait Belt,Front Wheeled Walker Orthotic/Prosthetic Devices or Brace: No Gait Deviations General Gait Pattern Decreased Stride Length, Decreased Feet Clearance, Flexed Trunk Factors Limiting Gait Function Factors Limiting Gait Function Decreased Activity Tolerance, Decreased Strength,Poor Balance,Poor Safety Awareness Comments Gait Comments Pt ambulated ~20 ft CGA within room with FWW. Pt demonstrated decreased foot clearance and flexed trunk during ambulation. Last ~10 ft of ambulation performed without AD. Pt required min A d/t poor stability and further decreased foot clearance without AD. Stair Climbing Assessment Comments Stair Climbing Comments not assessed PT-Balance Assessment Sitting Balance and Reactions Static Sitting Balance Ability Good Dynamic Sitting Balance Ability Fair Standing Balance and Reactions Static Standing Balance Ability Fair Dynamic Standing Balance Ability Fair Device Used FWW M5 PT-IP Objective Assessments Start: 08/02/19 08:20 Freq: NEEDED Status: Active Protocol: Document 08/02/19 08:37 JG (Rec: 08/02/19 11:33 [id number]) Orientation Orientation/Cognition Level of Alertness Alert Orientation Name,Day of Week,Place, Situation Language Function Ability No Deficits Noted Safety Awareness Decreased Safety Awareness Memory Description No Deficits Noted Comments No noted communication deficits but pt did occasionally need questions repeated. Able to answer questions accurately. Gross Range of Motion Upper Extremity ROM Assessment Within Functional Limits Lower Extremity ROM Assessment Within Functional Limits Strength Upper Extremity Strength Assessment Bilaterally Impaired Lower Extremity Strength Assessment Bilaterally Impaired Comments Strength Comments Generally weak 4-/5 throughout , no asymmetry Coordination Assessment Gross Coordination Gross Coordination WNL Assessment Heel on Cantor Test Normal Performance Sensation Assessment Sensation Gross Sensation WNL Muscle Tone Muscle Tone WNL Yes M6 PT-IP Treatment Start: 08/02/19 08:20 Freq: NEEDED Status: Active Protocol: Document 08/02/19 08:37 JG (Rec: 08/02/19 11:33 [id number]) Physical Therapy Treatment Education Education Provided Safety M7 PT-IP Assessment and Plan Start: 08/02/19 08:20 Freq: NEEDED Status: Active Protocol: Document 08/02/19 08:37 JEANIE (Rec: 08/02/19 11:33 JEANIE [id number]) PT Summary Assessment and Plan Summary Impairments Strength,Balance,Cognition,Bed Mobility,Transfers,Gait, Activity Tolerance Assessment Summary Pt is low complexity 83 yo female presenting. Pt's EMR notes DIANNE 0 in ED. Pt required min A for bed mobility. Pt required no more than CGA for ambulation with FWW but required min A for ambulation without FWW d/t dec'd stability. Pt states that she generally feels weak during assessment, which is how she has been feeling for last couple of weeks. PT currently recommending d/c to home with 24/7 assist once medically cleared and caregiver training complete. Goals Bed Mobility Goal Standby Assistance Transfer Goal Standby Assistance Gait Goal Standby Assistance Gait Distance 100 ft Other Goals Ascend/descend 3 stairs with B railing and CGA Days to Meet Goals 10 Frequency of Treatment Frequency Of Treatment Once a Day Treatment Plan Physical Therapy Treatment Plan Bed Mobility Training,Transfer Training,Gait Training, Therapeutic Exercise,Balance Retraining,Discharge Planning, Neuromuscular Re-ed Other Recommendations and Next Treatment Caregiver training Focus Recommendations To Nursing Amount of Assist Needed 1 Person Assist Discharge Recommendations PT Discharge Recommendations Home with Assistance,Home with 24/7 Assist,Home Health, Outpatient PT Equipment Needed for Home Before Pt may require FWW or cane Discharge depending on mobility needs noted review by PT ALONSO
--- NOTE | 2019-08-02 13:24 | OT.IP.EVAL ---
Past Medical History (Last Updated 08/02/19 @ 14:15 by Amarilis Morley DO) Hypothyroidism (Acute) Tinnitus (Acute) Urinary leakage (Acute) Vocal tremor (Acute) Surgical History (Last Updated 08/02/19 @ 14:16 by Amarilis Morley DO) History of appendectomy (Acute) History of section (Acute) S/P tonsillectomy (Acute) Occupational Therapy Inpatient Evaluation/Re-Eval M1 PT/OT-IP Prior Functional Status Start: 08/02/19 08:20 Freq: NEEDED Status: Active Protocol: Document 08/02/19 13:24 PJM (Rec: 08/02/19 14:51 [facility] [id number]) Medical Review Prior Functional Status Medical History Reviewed Yes Diet/Fluid Consistency Regular Communication No noted cognitive or communication deficits. Mobility and Gait Pt reports I with mobility and gait. Pt states she has had limited activity tolerance for the last year d/t generalized fatigue. Activities of Daily Living and IADL's Pt reports I with ADLs and shares IADLs with . Both drive. She manages her own medication and finances at home Prior Functional Level (Other details) Pt recently moved to this area about one month ago to be near her daughter. Pt reports her is in good health and can assist PRN at home Social History Household Members spouse Living Arrangements Apartment/Condo Number of Floors (Floors) One Floor Number of Stairs To Enter/Railing? 3 stairs to enter with B rails Home Environment Standard Height Toilet,Walk in Shower,Tub/Shower Home Equipment Hand Held Shower Employment Status Retired Additional Social History Comment Pt uses bathroom with tub shower combo. uses other bathroom M2 OT-IP Current Condition Start: 08/02/19 08:45 Freq: Status: Active Protocol: Document 08/02/19 13:24 PJM (Rec: 08/02/19 14:51 [facility] [id number]) Occupational Therapy Current Condition Current Condition Evaluation Date 08/02/19 Treatment Diagnosis decr'd activity tolerance, mobility , self care s/p syncopal episode Dx: stroke Diagnosis Onset Date 08/01/19 Post Operative Precautions Other Precautions fall risk, hypotensive M3 OT- IP Subjective and Pain Start: 08/02/19 08:45 Freq: Status: Active Protocol: Document 08/02/19 13:24 PJM (Rec: 08/02/19 14:51 [facility] [id number]) OT- Subjective Occupational Therapy Visit Type Type Initial Evaluation Visit Start Time 13:01 Visit Stop Time 13:24 Total Visit Minutes 23 Notes Daughter observing this session Occupational Therapy Visit Comments Patient Comments I haven't gotten any sleep. Patient/Caregiver Goals to go home and figure out why I don't have any energy OT Pain Assessment Pain When Pain Assessed After Treatment Pain Present Pain Present Denied Pain M4 OT- IP ADL's Start: 08/02/19 08:45 Freq: Status: Active Protocol: Document 08/02/19 13:24 PJM (Rec: 08/02/19 14:51 [facility] [id number]) OT LCQ-[id number]-[id number] General Evaluation Self-Feeding Ability Independent OT ADL-Grooming General Evaluation Grooming Ability Standby Assistance Areas Needing Assistance Face Washing Comments OT Grooming Comments after set up in bed OT ADL-Oral Care Comments Oral Care Comments did not occur this session OT ADL-Dressing Comments OT Dressing Comments did not occur, evaluation interrupted by need for ultrasound OT ADL-Toileting General Evaluation Toileting Ability Standby Assistance Areas Needing Assistance Perform Perineal Hygiene Comments OT Toileting Comments per P.T. 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 Medication Management Medication Management No Deficits Identified Money Management Money Management No Deficits Identified Meal Preparation Meal Preparation Comments pt states can assist PRN General Pediatrician General Pediatrician Comments pt states can assist PRN Driving Driving Comments pt states can assist PRN M6 OT- IP Functional Cognition Start: 08/02/19 08:45 Freq: Status: Active Protocol: Document 08/02/19 13:24 PJM (Rec: 08/02/19 14:51 [facility] [id number]) Cognitive Factors Limiting Selfcare Function Cognitive Ability Level of Alertness Alert Patient Orientation Name,Age,Birthday,Month,Year, Place,Situation Attention Span Ability Capable of Focused Attention, Capable of Sustained Attention Ability to Follow Commands Able to Follow One Step Commands Cognitive Comments Cognitive Assessment Comments Pt alert and oriented and recalls events leading to admission. Further assessment to follow. OT- Vision and Hearing OT- Hearing Assessment OT- Hearing Assessment WFL OT- Vision Assessment Visual Acuity Glasses All The Time Vision Assessment Comments No new vision deficits identified M7 OT- IP Mobility and Balance Start: 08/02/19 08:45 Freq: Status: Active Protocol: Document 08/02/19 13:24 PJM (Rec: 08/02/19 14:51 [facility] [id number]) OT-Transfer Assessment Comments Mobility Comments see P.T. notes, evaluation interrupted by ultrasound OT- Gait Assessment Comments Gait Ability Comments see P.T. notes OT- Balance Assessment Comments Other Balance Tests/Deviations/Treatment see P.T. 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[employer] Strength Hand Dominance Right OT- Coordination Assessment Comments Coordination Comments BUE WNL for self care OT-Muscle Tone Assessment Muscle Tone WNL Yes OT Sensation Assessment Comments Summary Comments BUE WNL Edema Edema Absent M9 OT- IP Assessment and Plan Start: 08/02/19 08:45 Freq: Status: Active Protocol: Document 08/02/19 13:24 PJM (Rec: 08/02/19 14:51 [facility] [id number]) OT Summary Assessment and Plan Potential Rehabilitation Potential Good Analytic Complexity at Evaluation Low Summary OT Impairments Functional Mobility,Dressing, Toileting,Bathing,Toilet Transfers,Shower Transfers Assessment Summary Low complexity OT assessment begun, but evaluation shortened by pt needing to have ultrasound. Pt's primary performance deficit appears to be decreased activity tolerance with no focal sensorimotor deficits identified. Further assessment of self care skills and functional cognition to follow in AM. Provided education to pt/ daughter re: fall reduction at home and bathroom safety equipment options. Recommend shower seat and grab bars in shower. Anticipate pt will be able to d/c home with when medically stable and clears P.T. Further recommendations re: HH or out pt therapy to follow pending progress here. Goals Grooming Goal Independent Dressing Goal Independent Toileting Goal Independent Bathing Goal Independent,Grab Bars,Hand Held Shower Sprayer Toilet Transfer Goal Independent Shower Transfer Goal Standby Assistance,Walk-in Shower,Shower Chair,Grab Bars Patient/Caregiver Education Goal Demonstrate Energy Conservation and Pacing, Caregiver Independent Assisting Patient OT-Other Goals Grooming to be done standing at sink with good safety awareness and no LOB. Days to Meet Goals 3 Frequency of Treatment Frequency Of Treatment Once a Day Treatment Plan OT Treatment Plan ADL Training,Functional Cognition Training,Functional Mobility,Patient/Family Education,Discharge Planning Discharge Recommendations OT Discharge Recommendations Home with Assistance Home Equipment Needs shower seat with back, grab bars
--- NOTE | 2019-08-02 13:31 | CM.DANOTE ---
Addendum entered by Naatlia Rice R.N. 08/02/19 15:20: CM/RN spoke with patient and patients daughter at the bedside to determine her second choice for SNF placement and patient is now saying she doesn't want to go to a SNF at all and would like outpatient therapy if she is able to move around and if not then she would like HH services. CM/RN still has the Face to face signed and ready and will contact [facility] as patient gets closer to D/C and need for HH services is determined. Natalia Rice RN Addendum entered by Natalia Rice R.N. 08/02/19 14:39: CM/RN spoke with Dr. Morley and the patient and patient D/C plan is either Home with HH or SNF. NEL/RN has Face to face signed and also contacted [facility] to review patient for prior auth for SNF placement. No senior production manager with [facility] has been assigned yet. Cm/RN will follow up with [facility] tomorrow about authorization. NEL/RN spoke with Babs at [facility] (patients first choice for SNF) who is reviewing patient for possible placement. Babs did let CM/Rn know that currently their are no female beds available at [facility] until maybe Wednesday at the earliest. CM/Rn will talk with patient and get secondary choice. PASRR not done yet until SNF Vs HH needs are determined. Natalia Rice RN Original Note: DCP Assessment: EMR reviewed: Patient is a 83 yr old female who was admitted to [facility] for Possible stroke. Patients PCP is Dr Bauman. CM/RN met with patient and patients sister at the bedside. Explained CM/RN role. Patient was Alert and oriented x3 at time of CM/RN meeting. Patient currently lives in a ground level apartment with her . Patient is I at [place] with all ADL's and drove prior to admission. patients sister reports that the patient was weaker recently and she is concerned she may need some HH services at d/c. Patient agreed. CM/RN gave the medicare HH provider list and [facility] Cm/RN will speak with Dr. Morley and see if she feels HH will be needed at D/C and review PT notes and get Face to Face signed and contact HH companies and send referrals. Patients sister also asked that at [facility] D/c if we can set up a hospital follow up appointment prior to d/c that way they have that set up. Patents sister stated that they have struggled in the past getting a follow up appointment in the past and do not want to D/C with out that piece set up. Patient PCP is Dr. Bauman. I: [address] self pay Plan: D/C home with HH vs Home with family when medically stable. CM department will follow closely and talk with Dr. Morley to determine if HH is an option. Natalia Rice RN Discharge Planning/Care Management Advanced directive, confirm from FAMILY Start: 08/02/19 06:22 Freq: Q24H Status: Complete Protocol: Document 08/02/19 06:22 TJB (Rec: 08/02/19 11:46 [facility] [id number]) Advance Directive, confirm on record Time 11:46 Person contacted pt Copy received No CM Discharge Assessment Start: 08/02/19 13:24 Freq: Status: Active Protocol: Document 08/02/19 13:25 HS (Rec: 08/02/19 13:31 HS [id number]) Discharge Planning Assessment Assigned Joint Creaser Natalia Rice RN DPOA/Assigned Designee Name Jasen Banruslan Contact Information [phone] Advance Directives? Yes History Provided By Patient,Family Member Has Patient been admitted in last 30 No days? Prior Living Arrangements Apartment/Condo Household Members spouse Type of transporation used prior to Drives own vehicle admit Independent with ADL's Yes Is patient alert and oriented? Yes Caregiver for Another No Patient/Family Preference Home with Home Health Discharge Plan Home with Home Health Transportation Arrangement patient will be transported home by or sister. Referrals Initiated Home Health Additional Comment Patient would like HH for help with ADL's and to increase her mobility and stablility Medicare Choice List Provided Yes SNF/HH Preference [facility] Has Agency SNF been contacted No Comment no pending PT evaluation Whiteboard Updated in Patient Room with Yes name and ext. # of Joint Creaser Review Status In Process Next Review Type Continued Stay Review
--- NOTE | 2019-08-02 14:10 | DI.US.S_ITS ---
PROCEDURE: US PERIPH VENOUS LOW EXTREM BI INDICATIONS: CVA, PAIN IN LEFT GROIN TECHNIQUE: Real-time imaging, as well as color and pulse Doppler interrogation, were performed of the deep veins of both legs from the inguinal ligament to the popliteal fossa. COMPARISON: None. FINDINGS: Right: The common femoral, femoral and popliteal veins are normally compressible, and free of intraluminal thrombus. Color and pulse Doppler demonstrate normal phasic intravascular flow. There is normal augmentation response to distal compression maneuver. Left: The common femoral, femoral and popliteal veins are normally compressible, and free of intraluminal thrombus. Color and pulse Doppler demonstrate normal phasic intravascular flow. There is normal augmentation response to distal compression maneuver. IMPRESSION: No evidence of deep vein thrombosis of the bilateral lower extremities. Dictated by: Dejon Rock M.D. on 08/02/2019 at 14:10 Approved by: Dejon Rock M.D. on 08/02/2019 at 14:10
--- NOTE | 2019-08-02 14:12 | P.HP_ITS ---
History of Present Illness History of Present Illness Date Patient Seen: 08/02/19 Chief complaint: Stroke Narrative: Yoana Hill is a 83-year-old female with a past medical history significant for hypothyroidism who presented to the ED for stroke-like symptoms after being found by her has been slumped over on the toilet with left-sided weakness and dysarthria. The patient reports that she got up in the middle of the night to use the bathroom and doesn't remember much after that. Her heard a noise and thought she had fallen. When he arrived to the bathroom he found her leaning against the wall while sitting on the toilet. Per the patient, her reported she was stiffer than a board and was incoherent not making any sense. Per the ED physician, EMS reported initial left-sided weakness and dysarthria that resolved by time of admission. It is unclear if the patient actually syncopized as this was unwitnessed. The patient was not incontinent of bowel or bladder and no reported seizure-like activity. No reported facial droop and no sensory changes such as numbness or tingling. The patient endorses blurry vision that has resolved. She has also had all over myalgias and continues to have left-sided leg pain in her groin that's persistent. She has chronic mild expressive aphasia that slowly progressed over several years but no acute changes. She denies headache, chest pain, shortness of breath, lightheadedness or dizziness, abdominal pain, nausea, vomiting, fever, chills, dysuria, diarrhea or constipation. The patient did have an mild episode of emesis in ED. She has had progressive generalized weakness over the last year more progressive over the last 2 weeks. She reports history of superficial thrombophlebitis. ED course: Vital signs: Temperature 99.8?, blood pressure 94/63, pulse 93, respiratory rate 16, 95% on room air. CT brain without contrast did not demonstrate any acute intracranial abnormalities. NIH score in ED was 0. The patient had persistent mild hypotension with SBP in 90s that improved after receiving 2 L of fluid and prompted a workup for possible sepsis which was completely negative. She recently had urinary tract infection that was treated with 10 day course of ciprofloxacin. Urinalysis was normal and not infected. She has a mild leukocytosis at 13.4 which was likely reactive and she has no other infectious signs or symptoms. Procalcitonin was negative < 0.05 and lactic acid 0.8. Chest x-ray was negative for acute cardiopulmonary process. CTA chest, abdomen, and pelvis demonstrated bilateral ill-defined subcentimeter pulmonary nodules and constipation. She has no upper respiratory tract symptoms and denies nasal congestion, rhinitis,, sore throat, cough, shortness of breath, fever, chills, etc.. She has had no abdominal or urinary symptoms either. Patient History Medical History (Updated 08/02/19 @ 15:00 by Amarilis Morley DO) Hypothyroidism (Acute) Superficial thrombophlebitis (Acute) Tinnitus (Acute) Urinary leakage (Acute) Vocal tremor (Acute) Surgical History (Updated 08/02/19 @ 14:16 by Amarilis Morley DO) History of appendectomy (Acute) History of section (Acute) S/P tonsillectomy (Acute) Family & Social History Family History (Updated 08/02/19 @ 14:18 by Amarilis Morley DO) Father Alcoholism Mother Parkinsons disease Sister Heart attack Son History of multiple cerebrovascular accidents (CVAs) Gravely disabled Social History: household members spouse Prior Living Arrangements Apartment/Condo Safety & Behavioral: Feels Safe in Current Yes Environment Been Physically Hurt or No Threatened By a Person Suicidal Ideation Description None Suicide Plan Description No Plan Tobacco & Substance use: Smoking Status Never smoker alcohol intake never Substance Use Type does not use The patient has been for 63 years. She has 4 children, 3 sons and 1 daughter. Her son has had multiple CVAs and is disabled. She has never been a smoker, used alcohol or drugs. Meds Home Medications and Allergies Home Medications Medication Instructions Recorded Confirmed Type levothyroxine 50 mcg PO DAILY 08/02/19 08/02/19 History Allergies Allergy/AdvReac Type Severity Reaction Status Date / Time Penicillins Allergy Rash Verified 08/02/19 04:00 Review of Systems Review of Systems Narrative: A 10 system comprehensive review of systems was conducted with the patient and found to be negative except as above in the History of Present Illness. Exam Vital Signs (past 8 hours): - 08/02/19 13:00 Temperature 98.5 F Pulse Rate 67 Respiratory Rate 18 Blood Pressure 107/52 L Pulse Oximetry 97 Oxygen Delivery Method Room Air Oxygen Flow Rate 0 Narrative Exam Narrative: General: Elderly female lying in bed and in no acute distress, well-developed, well-nourished, mild vocal tremor, appropriately interactive. HEENT: Normocephalic, atraumatic. External ears without defect. Pupils equal, round, and reactive to light. Does not accommodate difficulty following finger on right upper and lower gaze. Anicteric sclerae, moist conjunctivae, and no li d lag. Oropharynx free of erythema and cobble stoning with moist mucosa. Neck: Supple with full range of motion. No jugular venous distension. No bruits. No lymphadenopathy or thyromegaly. Cardiovascular: Regular rate and rhythm without murmurs, rubs, or gallops appreciated. Pulmonary: Clear to auscultation bilaterally without crackles, wheezes, or rhonchi. Normal respiratory effort with no use of accessory muscles. Abdomen: Soft, bowel sounds present, nontender, nondistended. No hepatospl enomegaly or masses appreciated. Extremities: No clubbing, cyanosis, or edema. Skin: Normal temperature, turgor, and texture; no rash, ulcers, or subcutaneous nodules appreciated. Neurological: Cranial nerves grossly intact. Normal muscle strength, tone, and bulk. Does not accommodate had difficulty following finger with gaze. Mild left upper extremity ataxia with [id number]. Vocal tremor. Mild expressive aphasia that is chronic. Psychiatric: Slightly irritable mood and normal affect. Alert and oriented to person, place, and time. Objective Labs Result Diagrams: 08/02/19 01:51 08/02/19 01:51 Labs: Laboratory Results - last 24 hr 08/02/19 08/02/19 08/02/19 01:51 01:51 01:51 WBC 13.4 H RBC 4.54 Hgb 13.4 Hct 39.5 MCV 87.0 MCH 29.4 MCHC 33.8 RDW 13.8 Plt Count 250 Neut % (Auto) 78.4 H Lymph % (Auto) 14.0 L [place] % (Auto) 6.0 Eos % (Auto) 1.2 L Baso % (Auto) 0.4 Neut # (Auto) 42835 H Lymph # (Auto) 1900 [place] # (Auto) 800 Eos # (Auto) 200 Baso # (Auto) 100 PT 12.1 INR 1.0 APTT 26 L Sodium Potassium Chloride Carbon Dioxide BUN Creatinine Estimated GFR BUN/Creatinine Ratio Glucose Lactate Calcium Magnesium Total Bilirubin AST ALT Alkaline Phosphatase Total Creatine Kinase 38 CK-MB (CK-2) TNP CK-MB (CK-2) Rel Index TNP Troponin I < 0.012 Total Protein Albumin Globulin Albumin/Globulin Ratio Procalcitonin TSH Free T4 Urine Color Urine Appearance Urine pH Ur Specific [place] Urine Protein Urine Glucose (UA) Urine Ketones Urine Occult Blood Urine Nitrate Urine Bilirubin Urine Urobilinogen Ur Leukocyte Esterase Urine RBC Urine WBC Urine Bacteria Ur Culture Indicated? Micro UA Comment 08/02/19 08/02/19 08/02/19 01:51 01:51 01:51 WBC RBC Hgb Hct MCV MCH MCHC RDW Plt Count Neut % (Auto) Lymph % (Auto) [place] % (Auto) Eos % (Auto) Baso % (Auto) Neut # (Auto) Lymph # (Auto) [place] # (Auto) Eos # (Auto) Baso # (Auto) PT INR APTT Sodium 137 Potassium 3.4 Chloride 105 Carbon Dioxide 23 BUN 18 H Creatinine 1.20 H Estimated GFR 43.1 L BUN/Creatinine Ratio 15.0 Glucose 175 H Lactate Calcium 9.2 Magnesium Total Bilirubin 0.5 AST 36 ALT 16 Alkaline Phosphatase 67 Total Creatine Kinase CK-MB (CK-2) CK-MB (CK-2) Rel Index Troponin I Total Protein 6.8 Albumin 4.1 Globulin 2.7 Albumin/Globulin Ratio 1.5 Procalcitonin < 0.05 TSH 8.44 H Free T4 Urine Color Urine Appearance Urine pH Ur Specific [place] Urine Protein Urine Glucose (UA) Urine Ketones Urine Occult Blood Urine Nitrate Urine Bilirubin Urine Urobilinogen Ur Leukocyte Esterase Urine RBC Urine WBC Urine Bacteria Ur Culture Indicated? Micro UA Comment 08/02/19 08/02/19 08/02/19 01:51 01:51 02:09 WBC RBC Hgb Hct MCV MCH MCHC RDW Plt Count Neut % (Auto) Lymph % (Auto) [place] % (Auto) Eos % (Auto) Baso % (Auto) Neut # (Auto) Lymph # (Auto) [place] # (Auto) Eos # (Auto) Baso # (Auto) PT INR APTT Sodium Potassium Chloride Carbon Dioxide BUN Creatinine Estimated GFR BUN/Creatinine Ratio Glucose Lactate 1.8 Calcium Magnesium 1.8 Total Bilirubin AST ALT Alkaline Phosphatase Total Creatine Kinase CK-MB (CK-2) CK-MB (CK-2) Rel Index Troponin I Total Protein Albumin Globulin Albumin/Globulin Ratio Procalcitonin TSH Free T4 1.12 Urine Color Urine Appearance Urine pH Ur Specific [place] Urine Protein Urine Glucose (UA) Urine Ketones Urine Occult Blood Urine Nitrate Urine Bilirubin Urine Urobilinogen Ur Leukocyte Esterase Urine RBC Urine WBC Urine Bacteria Ur Culture Indicated? Micro UA Comment 08/02/19 04:50 WBC RBC Hgb Hct MCV MCH MCHC RDW Plt Count Neut % (Auto) Lymph % (Auto) [place] % (Auto) Eos % (Auto) Baso % (Auto) Neut # (Auto) Lymph # (Auto) [place] # (Auto) Eos # (Auto) Baso # (Auto) PT INR APTT Sodium Potassium Chloride Carbon Dioxide BUN Creatinine Estimated GFR BUN/Creatinine Ratio Glucose Lactate Calcium Magnesium Total Bilirubin AST ALT Alkaline Phosphatase Total Creatine Kinase CK-MB (CK-2) CK-MB (CK-2) Rel Index Troponin I Total Protein Albumin Globulin Albumin/Globulin Ratio Procalcitonin TSH Free T4 Urine Color Straw Urine Appearance Clear Urine pH 5.5 Ur Specific [place] <=1.005 Urine Protein Negative Urine Glucose (UA) Negative Urine Ketones Negative Urine Occult Blood Trace-lysed Urine Nitrate Negative Urine Bilirubin Negative Urine Urobilinogen 0.2 Ur Leukocyte Esterase Negative Urine RBC None seen Urine WBC None seen Urine Bacteria None seen Ur Culture Indicated? Cult not indicated Micro UA Comment Microscopic normal Assessment & Plan Assessment & Plan narrative: Yoana Hill is a 83-year-old female with a past medical history significant for hypothyroidism who presented to the ED for stroke-like symptoms after being found by her has been slumped over on the toilet with left-sided weakness and dysarthria. 1. Acute right thalamus CVA, present on admission. Active. -Patient presented after being found on toilet leaning against the wall with left-sided weakness and dysarthria per that resolved prior to admission. -Cardiovascular risk factors include: Significant family history of cardiovascular disease in primary relative , hypertension, hyperlipidemia, obstructive sleep apnea possibly inadequately treated, stress, and hormone replacement therapy. -NIH score 0 in ED. NIH score 3 upon arrival to floor (for difficulty with gaze and unable to accommodate, ataxia with [id number], and expressive aphasia which she reports is chronic). -Continue frequent neuro checks and NIH score every shift. -EKG demonstrated normal sinus rhythm, heart rate 77, normal axis, normal inte rvals, good R-wave progression, no pathological Q-waves or acute ischemic changes such as ST elevation or depression. -Continue to monitor closely on telemetry. -Allow for permissive hypertension for first 24 hours. Order labetalol 10 mg IV every 4 hours as needed for SBP > 220 mmHg and DBP > 110 mmHg. -Risk stratify and ordered hemoglobin A1c and fasting lipid panel, pending. -Continue home aspirin 81 mg daily and in addition added Plavix 75 mg daily and atorvastatin 40 mg daily at bedtime for stroke prophylaxis. -Ordered echocardiogram, pending. -Patient with history of superficial thrombophlebitis and has left groin pain, therefore, ordered bilateral lower extremity Doppler ultrasound to rule out DVT, pending -MR stroke protocol demonstrated tiny focus of acute or subacute infarction involving the superior right thalamus, age-appropriate brain parenchymal volume loss and chronic small vessel ischemic changes, no masses or abnormal enhancement can be seen, and no significant intracranial or neck arterial abnormality, occlusions or significant stenosis is seen. [place] developmental anomalies are incidentally noted. -Ordered physical, occupational and speech therapy evaluation and treatment, pending. 2. Acute hypotension, present on admission. Resolved. -Unclear baseline BP and etiology but possibly due to dehydration from several weeks of diarrhea which is now resolved (large stool burden on CT as below and diarrhea likely promotions representative of encoparesis). -Infectious workup has been negative including: Chest x-ray, urinalysis, procalcitonin, lactic acid, afebrile. She does have mild leukocytosis at 13.4 which is likely reactive. She denies respiratory, abdominal, or urinary symptoms. Of note, she was recently treated for UTI with 10 day course of c iprofloxacin. Physical exam benign and no obvious infectious source. Did not start antibiotics as patient does not appear to have infection. -Patient had low normal blood pressure in the ED with SBP in the 90s and readily improved with 2 L of NS. -Continue IV fluid hydration with normal saline at 100 mL/hr. 3. Hypothyroidism, chronic, present on admission. Active. -TSH slightly elevated at 8.44 and normal free T4 at 1.12 indicative of subclinical hypothyroidism. -Increase levothyroxine from 50 mcg to 75 mcg due to patient's overall progressive generalized weakness which possibly could be due to subclinical hypothyroidism. 4. CT evidence of numerous ill-defined bilateral pulmonary nodules, present on admission. Presumed stable. -CT chest with contrast demonstrated numerous ill-defined subcentimeter bilateral upper and lower lobe pulmonary nodules. -Differential diagnosis is vast. Per radiology: may be promotions representative inflammatory versus infectious nature given partial ground-glass appearance, however, cannot exclude metastatic or neoplastic possibilities and recommend short interval follow-up CT. -Patient will likely need outpatient pulmonology referral for further evaluation and treatment. -Continue to monitor for signs of respiratory infection and low threshold to start antibiotics. 5. CT evidence of constipation, likely chronic, present on admission. Stable. -Several weeks of diarrhea which she reports is now resolved and with large stool burden on CT diarrhea was likely promotions representative of encoparesis. -Implemented bowel regimen with Colace 100 mg twice daily and MiraLax 17 g daily and will titrate to effect. Code status: DNR/DNI DVT prophylaxis: SQ heparin and SCDs Patient is admitted under inpatient status with expected length of stay greater than 2 midnights due to severity of presenting symptoms, risk of adverse event, and complexity of treatment plan. Scores NIHSS Level of Conciousness: Alert, keenly responsive Ask month/age: Answers both questions correctly. Open/close eyes, close hand: Performs both tasks correctly Best gaze horizontal: Partial gaze palsy, can be overcome by finger tracking, head turning Visual keller: No visual loss Facial palsy: Normal symetrical movement Left arm drift: No drift for full 10 sec Right arm drift: No drift for full 10 sec Left leg drift: No drift for full 5 sec Right leg drift: No drift for full 5 sec Limb ataxia: Present in one limb Sensory on face/arms/legs: Normal, no sensory loss Best language: Mild to moderate, slurs some words Dysarthria: Normal Extinction or inattention: No abnormality Total NIH Stroke scale score: 3 Quality VTE Deep Vein Thrombosis/Pulmonary Embolism Present on Admission: No
[2019-08-02 14:32] LABS: Cholesterol 176 mg/dL (140-199); HDL Cholesterol 68 mg/dL (40-60); LDL Cholesterol Calculated 89 mg/dL (<100); Triglycerides 97 mg/dL (35-150)
[2019-08-02 14:35] LABS: Hemoglobin A1C% w Est Avg Glu 5.4 % (4.0-6.0)
[2019-08-02] MEDS: HEPARIN 5,000 UNIT/ML VIAL 5000 UNIT SUBCUT ×2 (15:01→21:22)
[2019-08-02] MEDS: ASPIRIN EC 81 MG TABLET PO (15:05)
[2019-08-02] MEDS: POLYETHYLENE GLYCOL 3350 17 GM POWD.PACK PO (15:05)
[2019-08-02] MEDS: DOCUSATE 100 MG CAPSULE PO ×2 (15:05→21:21)
[2019-08-02] MEDS: CLOPIDOGREL 75 MG TABLET PO (15:05)
[2019-08-02] MEDS: SENNOSIDES 8.6 MG TABLET 17.2 MG PO (15:05)
[2019-08-02] MEDS: SODIUM CHLORIDE 0.9% 1,000 ML 100 ML IV (17:13)
[2019-08-02] MEDS: ATORVASTATIN 20 MG TABLET 40 MG PO (21:22)
[2019-08-02] MEDS: POTASSIUM CHLORIDE 20 MEQ TAB 40 MEQ PO (21:33)
--- NOTE | 2019-08-02 22:23 | PC.NURSE ---
SHIFT Report received, care assumed 1530. VSS. Pt. denies pain, reports generalized fatigue. NIH score 0. Up to bathroom several times throughout shift with walker and 1-person assist. Up to chair for 1+ hours at dinner time. Continued to deny pain throughout shift, but does report a general not feeling well, and being very tired. Refused SCD's at bedtime. Education provided, pt. verbalizes understanding.
[2019-08-03] VITALS: BP 114/63; PULSE 65; RESP 18; TEMP 36.8; O2SAT 94
[2019-08-03] MEDS: SODIUM CHLORIDE 0.9% 1,000 ML 100 ML IV (04:23)
[2019-08-03 04:42] VITALS: BP 117/63; PULSE 63; RESP 18; TEMP 36.2; O2SAT 96
[2019-08-03 06:08] LABS: Alanine Aminotransferase 14 IU/L (<35); Albumin 3.2 g/dL (3.5-5.0); Albumin Globulin Ratio 1.3 (1.0-2.8); Alkaline Phosphatase 47 U/L (38-126); Aspartate Aminotransferase 31 IU/L (14-36); BUN Creatinine Ratio 11.8 (6-22); Bilirubin Total 0.3 mg/dL (0.2-1.3); Blood Urea Nitrogen 13 mg/dL (7-17); Calcium 7.9 mg/dL (8.4-10.2); Carbon Dioxide 23 mmol/L (22-32); Chloride 109 mmol/L (98-107); Estimated Glomerular Filt Rate 47.7 mL/min (>60); Globulin 2.4 g/dL (1.7-4.1); Glucose 98 mg/dL (80-110); HEMOLYSIS < 15 (0-50); Potassium 3.6 mmol/L (3.4-5.1); Sodium 139 mmol/L (137-145); Total Protein 5.6 g/dL (6.3-8.2)
[2019-08-03 06:09] LABS: Magnesium 1.9 mg/dL (1.6-2.3)
[2019-08-03 06:26] LABS: Add Manual Diff / Slide Review NO; Basophils Absolute Auto 0 /uL (0-100); Basophils Percent Auto 0.2 % (0-2); Eosinophils Absolute Auto 300 /uL (0-450); Eosinophils Percent Auto 4.9 % (2-4); Hematocrit 33.5 % (36-46); Lymphocytes Absolute Auto 1900 /uL (1100-4500); Lymphocytes Percent Auto 31.7 % (25-40); Mean Corpuscular HGB Conc 32.8 % (30-36); Mean Corpuscular Hemoglobin 29.2 PG (26-34); Mean Corpuscular Volume 89.1 fL (80-100); Monocytes Absolute Auto 600 /uL (0-900); Monocytes Percent Auto 9.2 % (3-14); Neutrophils Absolute Auto 3300 /uL (1500-7000); Platelet Count 179 X10^3/uL (150-400); Red Blood Cell Count 3.76 X10^6/uL (4.0-5.2); Red Cell Distribution Width 14.1 % (11.6-14.8); White Blood Cell Count 6.1 X10^3/uL (4.5-11.0)
[2019-08-03 06:33] LABS: Procalcitonin 0.07 ng/mL (<0.5)
[2019-08-03 08:00] VITALS: BP 114/51; PULSE 63; RESP 16; TEMP 36.6; O2SAT 96
[2019-08-03] MEDS: HEPARIN 5,000 UNIT/ML VIAL 5000 UNIT SUBCUT (08:40)
[2019-08-03] MEDS: ASPIRIN EC 81 MG TABLET PO (08:40)
[2019-08-03] MEDS: CLOPIDOGREL 75 MG TABLET PO (08:40)
[2019-08-03] MEDS: POLYETHYLENE GLYCOL 3350 17 GM POWD.PACK PO (08:40)
[2019-08-03] MEDS: DOCUSATE 100 MG CAPSULE PO (08:40)
--- NOTE | 2019-08-03 09:55 | OT.IP.TRT ---
Current Diagnoses Cerebral infarction, unspecified (08/02/19) Occupational Therapy Treatment Note M2 OT-IP Current Condition Start: 08/02/19 08:45 Freq: Status: Active Protocol: Document 08/02/19 13:24 PJM (Rec: 08/02/19 14:51 PJ [id number]) Occupational Therapy Current Condition Current Condition Evaluation Date 08/02/19 Treatment Diagnosis decr'd act tolerance, mobility , self care s/p syncopal episode Dx: stroke Diagnosis Onset Date 08/01/19 Post Operative Precautions Other Precautions fall risk, hypotensive M3 OT- IP Subjective and Pain Start: 08/02/19 08:45 Freq: Status: Active Protocol: Document 08/03/19 09:55 PJM (Rec: 08/03/19 13:37 PJ [id number]) OT- Subjective Occupational Therapy Visit Type Type Treatment Note Visit Start Time 09:00 Visit Stop Time 09:55 Total Visit Minutes 55 Notes Pt's and daughter observing this session. Occupational Therapy Visit Comments Patient Comments I feel much better today. I got more sleep last night. Patient/Caregiver Goals to go home today OT Pain Assessment Pain When Pain Assessed After Treatment Pain Present Pain Present Denied Pain M4 OT- IP ADL's Start: 08/02/19 08:45 Freq: Status: Active Protocol: Document 08/03/19 09:55 PJM (Rec: 08/03/19 13:37 PJ [id number]) OT [id number] General Evaluation Self-Feeding Ability Independent OT ADL-Grooming General Evaluation Grooming Ability Independent Comments OT Grooming Comments standing at sink with no LOB OT ADL-Oral Care General Eval Oral Care Ability Independent Comments Oral Care Comments standing at sink with no LOB OT ADL-Dressing General Eval Upper Body Dressing Ability Independent Lower Body Dressing Ability Independent Areas Needing Assistance Underpants/Brief,Pants/Shorts, Socks,Shoes Comments OT Dressing Comments pt wears slip on sandals (Birkenstocks) OT ADL-Toileting General Evaluation Toileting Ability Independent OT ADL-Bathing Comments OT Bathing Comments Pt declined to shower here. Provided education to pt/ re: bathroom safety equipt options to reduce fall risk. states he can provide SBA at home PRN. M5 OT- IP IADL's Start: 08/02/19 08:45 Freq: Status: Active Protocol: Document 08/03/19 09:55 PJM (Rec: 08/03/19 13:37 PJ [id number]) OT-Instrumental Activities of Daily Living Medication Management Medication Management Caregiver Provides Supervision Medication Management Comments Pt found to have short term memory deficits on cognitive screening test. to provide supervision. Pt uses pillbox. Money Management Money Management Caregiver Provides Supervision Money Management Comments to provide supervision re: financial systems analyst PRN. Meal Preparation Meal Preparation Caregiver Provides Supervision Meal Preparation Comments Pt does most of cooking but can assist PRN High Lift Mule Operator High Lift Mule Operator Caregiver Provides Assist High Lift Mule Operator Comments Pt/ share resp therapist. Driving Driving Caregiver Provides Assist Driving Comments does most of the driving. Recommend pt get medical clearance from MD before resuming driving. See results of Trailmaking B below . M6 OT- IP Functional Cognition Start: 08/02/19 08:45 Freq: Status: Active Protocol: Document 08/03/19 09:55 PJ (Rec: 08/03/19 13:37 PJ [id number]) Cognitive Factors Limiting Selfcare Function Cognitive Ability Level of Alertness Alert Patient Orientation Name,Age,Birthday,Month,Date, Year,Day of Week,Place, Situation Attention Span Ability Capable of Focused Attention, Capable of Sustained Attention Ability to Follow Commands Able to Follow One Step Commands Memory Description Short Term Impaired Problem Solving Ability Needs Assist to Identify Solutions Cognitive Tests SLUMS Pt scored 18/30 (norm is 27/30). Pt had difficulty with short term and working memory. She recalls 1/5 words after 5 min delay and recalls 2/4 facts about short paragraph read to her. She demonstrates inattention to detail when placing numbers on clock drawing and reversed placement of hour and minute hand length. This score may represent pt's baseline level of function prior to admit. Cognitive Comments Cognitive Assessment Comments Administered Trailmaking A/B. Pt completed Trails A in 46 sec (Norm is <39 sec) and Trails B in 93 sec (Norm is < 85 sec) indicating mild to moderate decreased in visual scanning speed and divided attention. Pt needed 2 verbal cues for sequencing on Trails B. Per AMA guidelines, persons taking longer than 180 sec on Trails B are at higher risk of auto accident in next year. OT- Vision and Hearing OT- Hearing Assessment OT- Hearing Assessment WFL OT- Vision Assessment Visual Acuity WFL,Glasses All The Time Visual Attentiveness WFL Occular Pursuits WFL Visual Bird WFL Diplopia Absent Vision Assessment Comments No new vision deficits identified. M7 OT- IP Mobility and Balance Start: 08/02/19 08:45 Freq: Status: Active Protocol: Document 08/03/19 09:55 PJM (Rec: 08/03/19 13:37 PJM [id number]) OT-Transfer Assessment Sit to and From Stand Sit to and from Stand Standby Assistance Transfers Transfer Ability Standby Assistance,1 Person Assistance Technique Transfer Destination Chair,Toilet Devices Transfer Assistive Devices Front Wheeled Walker Comments Mobility Comments no LOB noted OT- Gait Assessment Gait Gait Assistance Required: Standby Assistance Distance (Feet) 25 Assistive Devices Assistive Device Front Wheeled Walker Comments Gait Ability Comments no LOB noted OT- Balance Assessment Sitting Balance and Reactions Static Sitting Balance Ability Good Dynamic Sitting Balance Ability Good Standing Balance and Reactions Static Standing Balance Ability Good Dynamic Standing Balance Ability Good Comments Other Balance Tests/Deviations/Treatment during dressing and toileting : M8 OT- IP Objective Assessments Start: 08/02/19 08:45 Freq: Status: Active Protocol: Document 08/02/19 13:24 PJM (Rec: 08/02/19 14:51 PJM [id number]) OT Gross Range of Motion Upper Extremity Range of Motion Assessment Within Functional Limits OT Strength Upper Extremity Strength Assessment Within Functional Limits Hand Lead Maintenance Technician Strength Hand Dominance Right OT- Coordination Assessment Comments Coordination Comments BUE WNL for self care OT-Muscle Tone Assessment Muscle Tone WNL Yes OT Sensation Assessment Comments Summary Comments BUE WNL Edema Edema Absent M9 OT- IP Assessment and Plan Start: 08/02/19 08:45 Freq: Status: Active Protocol: Document 08/03/19 09:55 PJM (Rec: 08/03/19 13:37 PJM [id number]) OT Summary Assessment and Plan Potential Rehabilitation Potential Good Summary Progress Towards Goals Safe For Discharge,Goals Met Assessment Summary Pt is now SBA to independent with all self care and functional mobility in room. P.T. has not yet cleared her for independent ambulation. Pt demonstrates some cognitive deficits on formal testing as described above, but this may represent pt's baseline level of function prior to admit. Pt safe to return home with supportive from OT standpoint. Supportive daughter also lives nearby. Recommend pt have medical clearance from MD prior to resuming driving. No further acute care OT services needed. Frequency of Treatment Frequency Of Treatment Discharge Discharge Recommendations OT Discharge Recommendations Home with Assistance Home Equipment Needs shower seat and grab bars in shower stall
--- NOTE | 2019-08-03 11:54 | PM.DS.1 ---
History of Present Illness History of Present Illness Chief complaint: Stroke Narrative: Written by myself Dr. Morley: Yoana Hill is a 83-year-old female with a past medical history significant for hypothyroidism who presented to the ED for stroke-like symptoms after being found by her has been slumped over on the toilet with left-sided weakness and dysarthria. The patient reports that she got up in the middle of the night to use the bathroom and doesn't remember much after that. Her heard a noise and thought she had fallen. When he arrived to the bathroom he found her leaning against the wall while sitting on the toilet. Per the patient, her reported she was stiffer than a board and was incoherent not making any sense. Per the ED physician, EMS reported initial left-sided weakness and dysarthria that resolved by time of admission. It is unclear if the patient actually syncopized as this was unwitnessed. The patient was not incontinent of bowel or bladder and no reported seizure-like activity. No reported facial droop and no sensory changes such as numbness or tingling. The patient endorses blurry vision that has resolved. She has also had all over myalgias and continues to have left-sided leg pain in her groin that's persistent. She has chronic mild expressive aphasia that slowly progressed over several years but no acute changes. She denies headache, chest pain, shortness of breath, lightheadedness or dizziness, abdominal pain, nausea, vomiting, fever, chills, dysuria, diarrhea or constipation. The patient did have an mild episode of emesis in ED. She has had progressive generalized weakness over the last year more progressive over the last 2 weeks. She reports history of superficial thrombophlebitis. ED course: Vital signs: Temperature 99.8?, blood pressure 94/63, pulse 93, respiratory rate 16, 95% on room air. CT brain without contrast did not demonstrate any acute intracranial abnormalities. NIH score in ED was 0. The patient had persistent mild hypotension with SBP in 90s that improved after receiving 2 L of fluid and prompted a workup for possible sepsis which was completely negative. She recently had urinary tract infection that was treated with 10 day course of ciprofloxacin. Urinalysis was normal and not infected. She has a mild leukocytosis at 13.4 which was likely reactive and she has no other infectious signs or symptoms. Procalcitonin was negative < 0.05 and lactic acid 0.8. Chest x-ray was negative for acute cardiopulmonary process. CTA chest, abdomen, and pelvis demonstrated bilateral ill-defined subcentimeter pulmonary nodules and constipation. She has no upper respiratory tract symptoms and denies nasal congestion, rhinitis,, sore throat, cough, shortness of breath, fever, chills, etc.. She has had no abdominal or urinary symptoms either. Discharge Providers Provider Date of admission: 08/02/19 13:17 Discharge Date: 08/03/19 Consults: 08/02/19 06:06 Consult to Discharge Planning Routine Comment: Consult to Occupational Therapy Evaluate & Treat Comment: decreased ability to partake in ADLs Physician Instructions: Evaluate and treat Consult to Physical Therapy Evaluate & Treat Comment: deconditioning, generalized weakness Physician Instructions: Evaluate and Treat 08/02/19 14:34 Consult to Speech Therapy Evaluate & Treat Comment: thalamuCVA, chronic mild exp aphasia, vocal tremor Physician Instructions: Evaluate and treat Discharge provider: Amarilis Morley DO Summary Hospital Course Discharge Diagnosis: 1. Acute right thalamus CVA, present on admission. Improved. 2. Acute hypotension, present on admission. Resolved. 3. Hypothyroidism, chronic, present on admission. Stable. 4. CT evidence of numerous ill-defined bilateral pulmonary nodules, present on admission. Presumed stable. 5. CT evidence of constipation, likely chronic, present on admission. Stable. Hospital Course: Yoana Hill is a 83-year-old female with a past medical history significant for hypothyroidism who presented to the ED for stroke-like symptoms after being found by her has been slumped over on the toilet with left-sided weakness and dysarthria. 1. Acute right thalamus CVA, present on admission. Improved. -Patient presented after being found on toilet leaning against the wall with left-sided weakness and dysarthria per that resolved prior to admission. -Cardiovascular risk factors include: Significant family history of cardiovascular disease in primary relative , hypertension, hyperlipidemia, obstructive sleep apnea possibly inadequately treated, stress, and hormone replacement therapy. -NIH score 0 in ED. NIH score 3 upon arrival to floor (for difficulty with gaze and unable to accommodate, ataxia with [id number], and expressive aphasia which she reports is chronic). NIH score now 2 gaze palsy resolved. -Continued frequent neuro checks and NIH score every shift. -EKG demonstrated normal sinus rhythm, heart rate 77, normal axis, normal intervals, good R-wave progression, no pathological Q-waves or acute ischemic changes such as ST elevation or depression. -Continued to monitor closely on telemetry. -Allowed for permissive hypertension for first 24 hours. Order labetalol 10 mg IV every 4 hours as needed for SBP > 220 mmHg and DBP > 110 mmHg. -Risk stratified with hemoglobin A1c which was normal at 5.4% and fasting lipid panel which demonstrated: Total cholesterol 176, triglycerides 97, LDL 89, (goal < 70), HDL 68. -Continued home aspirin 81 mg daily and in addition added Plavix 75 mg daily and atorvastatin 40 mg daily at bedtime for stroke prophylaxis. -Echocardiogram unremarkable and did not demonstrate any interatrial shunt or bolus source. -Patient with history of superficial thrombophlebitis and has left groin pain, therefore, ordered bilateral lower extremity Doppler ultrasound which ruled out DVT. -MR stroke protocol demonstrated tiny focus of acute or subacute infarction involving the superior right thalamus, age-appropriate brain parenchymal volume loss and chronic small vessel ischemic changes, no masses or abnormal enhancement can be seen, and no significant intracranial or neck arterial abnormality, occlusions or significant stenosis is seen. [place] developmental anomalies are incidentally noted. -Continued physical, occupational and speech therapy evaluation and treatment. The patient continued to improve and recommended outpatient PT and OT. -Recommend referral to neurology to assess patient for Parkinson's disease and vocal tremor. 2. Acute hypotension, present on admission. Resolved. -Unclear baseline BP and etiology but possibly due to dehydration from several weeks of diarrhea which is now resolved (large stool burden on CT as below and diarrhea likely in store marketing representative of encoparesis). -Infectious workup has been negative including: Chest x-ray, urinalysis, procalcitonin, lactic acid, afebrile. She does have mild leukocytosis at 13.4 which is likely reactive. She denies respiratory, abdominal, or urinary symptoms. Of note, she was recently treated for UTI with 10 day course of ciprofloxacin. Physical exam benign and no obvious infectious source. Did not start antibiotics as patient does not appear to have infection. -Patient had low normal blood pressure in the ED with SBP in the 90s and readily improved with 2 L of NS. -Continued IV fluid hydration with normal saline at 100 mL/hr until adequately hydrated then discontinued. 3. Hypothyroidism, chronic, present on admission. Stable. -TSH slightly elevated at 8.44 and normal free T4 at 1.12 indicative of subclinical hypothyroidism. -Increased levothyroxine from 50 mcg to 75 mcg due to patient's overall progressive generalized weakness which possibly could be due to subclinical hypothyroidism. Recommend repeat thyroid function testing in 4-[address] evidence of numerous ill-defined bilateral pulmonary nodules, present on admission. Presumed stable. -CT chest with contrast demonstrated numerous ill-defined subcentimeter bilateral upper and lower lobe pulmonary nodules. -Differential diagnosis is vast. Per radiology: may be in store marketing representative inflammatory versus infectious nature given partial ground-glass appearance, however, cannot exclude metastatic or neoplastic possibilities and recommend short interval follow-up CT. -Recommend outpatient pulmonology referral for further evaluation and treatment. -Continued to monitor for signs of respiratory infection with low threshold to start antibiotics. Patient had no signs or symptoms. 5. CT evidence of constipation, likely chronic, present on admission. Stable. -Several weeks of diarrhea which she reports is now resolved. The patient has a large stool burden on CT and diarrhea was likely in store marketing representative of encoparesis. -Implemented bowel regimen with Colace 100 mg twice daily and MiraLax 17 g daily. Continue to titrate to effect. Exam Vital Signs (past 8 hours): - 08/03/19 04:42 08/03/19 08:00 Temperature 97.2 F L 97.8 F Pulse Rate 63 63 Respiratory Rate 18 16 Blood Pressure 117/63 114/51 L Pulse Oximetry 96 96 Oxygen Delivery Method Room Air Oxygen Flow Rate 0 Narrative Exam Narrative: General: Elderly female lying in bed and in no acute distress, well-developed, well-nourished, mild vocal tremor, appropriately interactive. HEENT: Normocephalic, atraumatic. External ears without defect. Pupils equal, round, and reactive to light. Does not accommodate difficulty following finger on right upper and lower gaze. Anicteric sclerae, moist conjunctivae, and no lid lag. Oropharynx free of erythema and cobble stoning with moist mucosa. Neck: Supple with full range of motion. No jugular venous distension. No bruits. No lymphadenopathy or thyromegaly. Cardiovascular: Regular rate and rhythm without murmurs, rubs, or gallops appreciated. Pulmonary: Clear to auscultation bilaterally without crackles, wheezes, or rhonchi. Normal respiratory effort with no use of accessory muscles. Abdomen: Soft, bowel sounds present, nontender, nondistended. No hepatosplenomegaly or masses appreciated. Extremities: No clubbing, cyanosis, or edema. Skin: Normal temperature, turgor, and texture; no rash, ulcers, or subcutaneous nodules appreciated. Neurological: Cranial nerves grossly intact. Normal muscle strength, tone, and bulk. Does not accommodate and had difficulty following finger with gaze which resolved. Mild left upper extremity ataxia with [id number]. Vocal tremor. Mild expressive aphasia that is chronic. Probable mild dementia with short-term memory recall deficit. Possible Parkinson's disease. Psychiatric: Normal mood and normal affect. Alert and oriented to person, place, and time. Objective Labs Result Diagrams: 08/03/19 05:25 08/03/19 05:25 Labs: Laboratory Results - last 24 hr 08/02/19 08/02/19 08/03/19 01:51 01:51 05:25 WBC 6.1 D RBC 3.76 L Hgb 11.0 L Hct 33.5 L MCV 89.1 MCH 29.2 MCHC 32.8 RDW 14.1 Plt Count 179 Neut % (Auto) 54.0 D Lymph % (Auto) 31.7 [place] % (Auto) 9.2 Eos % (Auto) 4.9 H Baso % (Auto) 0.2 Neut # (Auto) 3300 Lymph # (Auto) 1900 [place] # (Auto) 600 Eos # (Auto) 300 Baso # (Auto) 0 Sodium Potassium Chloride Carbon Dioxide BUN Creatinine Estimated GFR BUN/Creatinine Ratio Glucose Hemoglobin A1c 5.4 Calcium Magnesium Total Bilirubin AST ALT Alkaline Phosphatase Total Protein Albumin Globulin Albumin/Globulin Ratio Triglycerides 97 Cholesterol 176 LDL Cholesterol, Calc 89 HDL Cholesterol 68 H Procalcitonin 08/03/19 08/03/19 08/03/19 05:25 05:25 05:25 WBC RBC Hgb Hct MCV MCH MCHC RDW Plt Count Neut % (Auto) Lymph % (Auto) [place] % (Auto) Eos % (Auto) Baso % (Auto) Neut # (Auto) Lymph # (Auto) [place] # (Auto) Eos # (Auto) Baso # (Auto) Sodium 139 Potassium 3.6 Chloride 109 H Carbon Dioxide 23 BUN 13 Creatinine 1.10 H Estimated GFR 47.7 L BUN/Creatinine Ratio 11.8 Glucose 98 Hemoglobin A1c Calcium 7.9 L Magnesium 1.9 Total Bilirubin 0.3 AST 31 ALT 14 Alkaline Phosphatase 47 Total Protein 5.6 L Albumin 3.2 L Globulin 2.4 Albumin/Globulin Ratio 1.3 Triglycerides Cholesterol LDL Cholesterol, Calc HDL Cholesterol Procalcitonin 0.07 Discharge Plan Discharge Plan Patient Disposition: Home Discharge comment: You're being discharged home. Recommend outpatient physical and occupational therapy. Occupational therapy also recommends you obtain a shower chair with back and grab bars. You have had a stroke. You have been prescribed Plavix 75 mg daily in addition to aspirin 81 mg daily for stroke prevention. You have also been prescribed atorvastatin 40 mg daily at bedtime to decrease cholesterol and stroke prevention. Your levothyroxine dose has been increased to 75 mcg as you were slightly under treated which may have been contributing to your overall generalized weakness. Please have your thyroid function checked in 4-6 weeks. Your also found to have a large stool burden in your colon in store marketing representative of chronic constipation and your previous diarrhea was likely stooling around hard stool. You have been prescribed Colace (stool softener) 100 mg twice daily and MiraLax (osmotic laxative) 17 g daily to help keep your bowel movements regular. Please try to drink plenty of water with these medications. Please follow up at [facility] at your scheduled appointment regarding your hospitalization and referral to neurology. Discharge orders & Medications Prescriptions: New aspirin 81 mg Tablet,Delayed Release (Dr/Ec) 81 mg PO DAILY Qty: 30 RF: 0 atorvastatin 40 mg tablet 40 mg PO BEDTIME Qty: 30 RF: 0 levothyroxine 75 mcg capsule 75 mcg PO DAILY Qty: 30 RF: 0 clopidogrel 75 mg Tablet 75 mg PO DAILY Qty: 30 RF: 0 polyethylene glycol 3350 17 gram Powder In Packet 17 gram PO DAILY Qty: 30 RF: 0 bisacodyl 10 mg Suppository 10 mg [place] DAILY PRN (Reason: Constipation) Qty: 10 RF: 0 docusate sodium [DOK] 100 mg Capsule 100 mg PO BID Qty: 60 RF: 0 Discontinued levothyroxine 50 mcg Tablet 50 mcg PO DAILY RF: 0 No Action ciprofloxacin HCl [Cipro] 500 mg tablet 500 mg PO BID 10 Days Qty: 20 RF: 0 multivitamin Tablet 1 tab PO DAILY RF: 0 levothyroxine 50 mcg Tablet 50 mcg PO DAILY RF: 0 Vitamin B-12 1 tab PO DAILY RF: 0 Vitamin C 1 tab PO DAILY RF: 0 Vitamin D3 1 cap PO DAILY RF: 0 Follow up/Referrals: [facility] [Provider Group] Priyanka Bauman ARNP [[facility]] - 08/14/19 3:00 pm (appt:08/14 3:00 with bj aguero at [facility] ) Diet/Activity/Treatments Diet: Low-fat, Low-sodium and Low-cholesterol Activity: Activity as tolerated Visit Report/Discharge Packet Instructions: The Mediterranean Diet and Good Health, Ischemic Stroke, DI for Stroke-Ischemic, DI for Hypothyroidism, Mediterranean Diet May Reduce the Risk of Stroke in People with High Risk o, Atorvastatin (By mouth), Clopidogrel (By mouth) Discharges patient from system. Discharge Date/Time: 08/03/19 13:47 Quality VTE Deep Vein Thrombosis/Pulmonary Embolism Present on Admission: No
--- NOTE | 2019-08-03 11:59 | PT.IPTN ---
Current Diagnoses Cerebral infarction, unspecified (08/02/19) Physical Therapy Treatment Note M2 PT-IP Current Condition Start: 08/02/19 08:20 Freq: NEEDED Status: Active Protocol: Document 08/02/19 08:37 JG (Rec: 08/02/19 11:33 JG [id number]) Physical Therapy Current Condition Current Condition Evaluation Date 08/02/19 Treatment Diagnosis Syncopal episode, difficulty walking, limited activity tolerance Onset Date 08/02/19 Weight Bearing Status Weight Bearing Status Full Weight Bearing M3 PT-IP Subjective Start: 08/02/19 08:20 Freq: NEEDED Status: Active Protocol: Document 08/03/19 11:22 JG (Rec: 08/03/19 11:55 JG [email or web address]) Subjective Physical Therapy Visit Type Type Treatment Note Visit Start Time 11:22 Visit Stop Time 11:40 Total Visit Minutes 18 Notes Tx led by ZOË Callahan, supervised by PT Alonso Number of SUBSTATION DESIGNER Visits 0 Physical Therapy Visit Comments Patient Comments I feel so much better today. Patient Goals Return home M4 PT-IP Mobility and Gait Start: 08/02/19 08:20 Freq: NEEDED Status: Active Protocol: Document 08/03/19 11:22 JG (Rec: 08/03/19 11:55 JG [email or web address]) PT-Bed Mobility Assessment Supine to Sit Supine to Sit Standby Assistance,Head of Bed Elevated Scooting Scooting to Edge of Bed Standby Assistance PT-Transfer Assessment Sit to and From Stand Sit to and from Stand Standby Assistance Equipment Transfer Assistive Device None,Gait Belt Orthotic/Prosthetic Devices or Brace: No Transfers Transfer Destination Chair Transfer Technique ambulate without AD Transfer Ability Level of Assist Standby Assistance Comments Mobility Comments Pt in bed upon start of tx. Pt required no more than SBA for bed mobility and sit to/from stand. Completed cranial nerve testing at EOB. Pt demonstrates difficulty with visual tracking and identification R field > L. After ambulation and stair climbing, pt left in chair with call light and needs within reach. BP 151/61. Pt's and daughter in room. Gait Assessment Gait Gait Assistance Required: Standby Assistance Distance (Feet) 250 Able to Maintain Weight Bearing Status Yes During Gait Assistive Devices Assistive Device None,Gait Belt Orthotic/Prosthetic Devices or Brace: No Gait Deviations General Gait Pattern Ataxic,Decreased Stride Length ,Decreased Feet Clearance Factors Limiting Gait Function Factors Limiting Gait Function Decreased Activity Tolerance, Decreased Strength,Poor Balance,Poor Safety Awareness Comments Gait Comments Pt ambulated ~250 ft to complete stair training and back to room. Pt ambulated without AD SBA. Pt cont to demonstrate poor safety awareness and required cuing to navigate around obstacles in hallway. Pt cont to ambulate with dec'd foot clearance and stride length but improved stability. Stair Climbing Assessment Evaluation Level of Assist On Stairs Contact Guard Assistance Devices Stair Climbing Assistive Devices Left Railing,Right Railing Technique/Endurance Stair Climbing Direction Ascend and Descend Stair Climbing Technique Step to Step Number of Steps Climbed 3 Stair Climbing Set # Repetitions (reps) 2 Comments Stair Climbing Comments Pt completed stair training CGA with cuing to use step to step pattern for safety. Initial round completed with B railing support, second round completed with R railing. Pt demonstrated good safety and stability during stair climbing. PT-Balance Assessment Sitting Balance and Reactions Static Sitting Balance Ability Good Dynamic Sitting Balance Ability Good Standing Balance and Reactions Static Standing Balance Ability Good Dynamic Standing Balance Ability Fair M5 PT-IP Objective Assessments Start: 08/02/19 08:20 Freq: NEEDED Status: Active Protocol: Document 08/02/19 08:37 JG (Rec: 08/02/19 11:33 J [id number]) Orientation Orientation/Cognition Level of Alertness Alert Orientation Name,Day of Week,Place, Situation Language Function Ability No Deficits Noted Safety Awareness Decreased Safety Awareness Memory Description No Deficits Noted Comments No noted communication deficits but pt did occasionally need questions repeated. Able to answer questions accurately. Gross Range of Motion Upper Extremity ROM Assessment Within Functional Limits Lower Extremity ROM Assessment Within Functional Limits Strength Upper Extremity Strength Assessment Bilaterally Impaired Lower Extremity Strength Assessment Bilaterally Impaired Comments Strength Comments Generally weak 4-/5 throughout , no asymmetry Coordination Assessment Gross Coordination Gross Coordination WNL Assessment Heel on Cantor Test Normal Performance Sensation Assessment Sensation Gross Sensation WNL Muscle Tone Muscle Tone WNL Yes M6 PT-IP Treatment Start: 08/02/19 08:20 Freq: NEEDED Status: Active Protocol: Document 08/03/19 11:22 JG (Rec: 08/03/19 11:55 JG [email or web address]) Physical Therapy Treatment Education Education Provided Safety Other Treatments Other Treatment Performed Educated pt and / daughter on step to pattern for stair climbing to improve safety. M7 PT-IP Assessment and Plan Start: 08/02/19 08:20 Freq: NEEDED Status: Active Protocol: Document 08/03/19 11:22 JG (Rec: 08/03/19 11:55 JG [email or web address]) PT Summary Assessment and Plan Potential Rehabilitation Potential Good Status of Condition at Evaluation Stable Summary Impairments Strength,Balance,Cognition,Bed Mobility,Transfers,Gait, Activity Tolerance Progress Towards Goals Safe For Discharge,Goals Met Assessment Summary Pt demonstrates greatly improved functional mobility compared to IE yesterday. Pt demonstrates minimal motor deficits with some visual field deficits R>L. Pt required no more than SBA for bed mobility, transfers, and ambulation without AD. Pt completed stair training with CGA. Pt has good social support to assist at home. Pt safe for d/c but will likely benefit from OP PT for strengthening and balance training. Disc pt project with Dr. Morley and recommended d/c home with assist and OP PT. Goals Bed Mobility Goal Standby Assistance Transfer Goal Standby Assistance Gait Goal Standby Assistance Gait Distance 100 ft Other Goals Ascend/descend 3 stairs with B railing and CGA Days to Meet Goals 10 Frequency of Treatment Frequency Of Treatment Discharge Recommendations To Nursing Amount of Assist Needed Standby Assistance Discharge Recommendations PT Discharge Recommendations Home with Assistance, Outpatient PT
--- NOTE | 2019-08-03 12:57 | ST.IPSLE ---
Visit Care Team Role Provider Type Linda Lemons DO Emergency Provider Physician Specialty: Emergency Medicine Address: [address] [place] [address], [id number] Email: [email or web address] [email or web address] Admit Provider Advanced Cosmetic Sales Consultant Attending Provider Specialty: Internal Medicine Address: [address] [place] [address], [id number] Email: [email or web address] Current Diagnoses Cerebral infarction, unspecified (08/02/19) Past Medical History (Last Updated 08/02/19 @ 15:00 by Amarilis Morley DO) Hypothyroidism (Acute Medical) Superficial thrombophlebitis (Acute Medical) Tinnitus (Acute Medical) Urinary leakage (Acute Medical) Vocal tremor (Acute Medical) Speech-Language Pathology Speech/Language Eval PSYCHOPAEDIC NURSE Language Evaluation Start: 08/03/19 11:56 Freq: Status: Active Protocol: Document 08/03/19 12:00 LNK (Rec: 08/03/19 12:56 LNK [id number]) Language Evaluation Session Time Visit Start Time 11:00 Visit Stop Time 11:45 Total Visit Minutes 45 Next Note Type Next Note Type Treatment Note Referral Referring Physician Dr. Morley Language Evaluation Assessment Type Informal Past Medical History Patient History Yoana Hill is a 83-year-old female with a past medical history significant for hypothyroidism who presented to the ED for stroke-like symptoms after being found by her has been slumped over on the toilet with left-sided weakness and dysarthria. The patient reports that she got up in the middle of the night to use the bathroom and doesn' t remember much after that. Her heard a noise and thought she had fallen. When he arrived to the bathroom he found her leaning against the wall while sitting on the toilet. Per the patient, her reported she was stiffer than a board and was incoherent not making any sense. Per the ED physician, EMS reported initial left- sided weakness and dysarthria that resolved by time of admission. It is unclear if the patient actually syncopized as this was unwitnessed. The patient was not incontinent of bowel or bladder and no reported seizure-like activity. No reported facial droop and no sensory changes such as numbness or tingling. The patient endorses blurry vision that has resolved. She has also had all over myalgias and continues to have left-sided leg pain in her groin that's persistent. She has chronic mild expressive aphasia that slowly progressed over several years but no acute changes. She has had progressive generalized weakness over the last year more progressive over the last 2 weeks. Previous Therapy Previous Speech-Language Therapy No: Saw ST x1 in [place], [place] Oral Motor Examination Oral Motor Exam Completed Yes Results Om examination indicated structures and function to be WFL. Speech was clear and intelligible without s/sx of dysarthria. Facial symmetry noted. Tongue, soft palate, lips jaw all presented with normal strength, ROM and speed. Subjective Subjective Pt was in bed with family present. - Informal Assessment Receptive Language Normal Yes Expressive Language Normal Yes Articulation Normal Yes Assessment Findings Pt presented with no overt s/ sx of aphasia, dysarthria, facial weakness or difficulty with word finding. However, she did have a noted vocal tremor when she sustained phonation and spoke. Her family reported that the tremor has been noted for the past 6 months to a year. her described that when the pt has her mouth open for breathing, her lower lip has a consistent tremor. Additionally, the pt reported that as the day progresses, her voice fades to near whisper and her intelligibility diminishes. Pt reported that when she lived in [place], [place], she saw an ENT and a speech pathologist, whom she felt were not helpful. Finally, the pt and her family reported that over the past year, her overall strength has diminished, which her family reported is unusual for the pt. The pt made note that her father of Parkinson's disease and that she has a brother whose tremors are so bad, he needs assistance to eat. Observations and recommendation for neurological assessment discussed with Dr. Morley. Recommendations Recommend referral to neurologist for assessment Recommend outpatient speech/ voice therapy SANDRINE - Receptive Language - Expressive Language -
--- NOTE | 2019-08-03 13:17 | PC.NURSE ---
Pt is dressed and ready for discharge home with Spouse. Reviewed stroke education, discussed new meds and time of last dose, encouraged fluid intake to prevent constipation or dehydration, recommended and gave information on the Mediterranean diet, discussed follow up, and reminded Pt to watch for signs of stroke and come in to the ER right away if any stroke signs present. Pt denies further questions and was taken out to POV via w/c by RN to POV with Spouse and all belongings.
== END 2019-08-03 13:47 | disposition home or self-care (01) | DRG 65 ==
LOC: ED 05:29 → AC 05:29
PROVIDERS: Internal Medicine; Admitting Provider Nurse Practitioner Gerontology; Emergency Provider Emergency Medicine; Visit Provider Nurse Practitioner Gerontology
DX: I63.81 Other cerebral infarction due to occlusion or stenosis of small artery (principal); G81.94 Hemiplegia, unspecified affecting left nondominant side; R47.1 Dysarthria and anarthria; I95.89 Other hypotension; E86.0 Dehydration; R91.8 Other nonspecific abnormal finding of lung field; E03.9 Hypothyroidism, unspecified; K59.09 Other constipation; Z66 Do not resuscitate
CPT/HCPCS: 36415; 70450; 70548; 70553; 71045; 71260; 74177; 80053; 80061; 81001; 82550; 83036; 83605; 83735; 84145; 84439; 84443; 84484; 85025; 85610; 85730; 87040; 92523; 93005; 93010; 93306; 93970; 96360; 96361; 97116; 97161; 97165; 97530; 97535; 99284; 99285; G0378; A9579; J1644; Q9967

== ENCOUNTER 2019-09-04 08:50 | Outpatient (RCR) | payer OTHER, SELFPAY ==
[2019-08-02 05:42] VITALS: BMI 36.3
--- NOTE | 2019-09-04 12:11 | PT.OIE ---
Current Diagnoses Cerebral infarction, unspecified (09/04/19) Past Medical History (This Medical Record has been edited. Action required.) Hypothyroid (Acute) Hypothyroidism (Acute) Superficial thrombophlebitis (Acute) Tinnitus (Acute) Urinary leakage (Acute) Vocal tremor (Acute) Past Surgical History (This Medical Record has been edited. Action required.) History of appendectomy (Acute) History of section (Acute) S/P tonsillectomy (Acute) Visit Care Team Role Provider Type MERARI La Primary Care Provider Advanced Harnessmaker Apprentice Specialty: Family Practice Address: [address] [place] [address], [facility] Email: [email or web address] Parth Ying MD Attending Provider Physician Specialty: Internal Medicine Address: [address] [place] [address], [address], [place], [address] Email: [email or web address] Physical Therapy Initial Evaluation PT-OP-A Visit Information Start: 09/04/19 08:11 Freq: Status: Active Protocol: Document 09/04/19 09:02 [facility] (Rec: 09/04/19 09:57 [facility] [id number]) Out-Patient Physical Therapy Visit Information Visit Information Visit Type Initial Evaluation Visit Start Time 09:05 Visit Stop Time 09:49 Total Visit Minutes 44 Visit Number 1 Number of PRODUCT MARKETING CONSULTANT Visits 0 PT-OP-B Current Condition Start: 09/04/19 08:11 Freq: Status: Active Protocol: Document 09/04/19 09:02 [facility] (Rec: 09/04/19 09:57 [facility] [id number]) Current Condition History of Current Condition Onset Date Jul 2019 Current Complaints CVA History of Current Condition Pt reprots went to ER and was given fluids and then went home then a few days later and felt strange and ended up passing out. She went to ER and diagnosed with CVA. Pt reports feeling really good now. For a few weeks, she had really low energy, but now its back. Pt indep with bathing, HEP, dressed, and does cooking and cleaning. Pt had issues with diahrea prior to first visit to hospital. Pt reprots tremors (in voice & head & sometimes into hands) for about 2 years. She has seen an oral surgeon & speech therapist who just said that is something she has to deal with. Pt and her dgt noticed that she has slowed down over the past year or 2 where she had dec ability to do yard work & dec stamina. Treatment Goals Patient/Caregiver Goals does not want to do PT PT-OP-C Subjective Start: 09/04/19 08:11 Freq: Status: Active Protocol: Document 09/04/19 09:02 [facility] (Rec: 09/04/19 09:57 [facility] [id number]) OP-PT Subjective Patient Comments Patient Comments Pt is hoping not to do PT PT-OP-D Balance Start: 09/04/19 08:11 Freq: Status: Active Protocol: Document 09/04/19 09:02 [facility] (Rec: 09/04/19 09:57 [facility] [id number]) Balance Tests Sawant Balance Test Sawant Balance Test Score 52 PT-OP-E Functional Tests Start: 09/04/19 08:11 Freq: Status: Active Protocol: Document 09/04/19 09:02 [facility] (Rec: 09/04/19 09:57 [facility] [id number]) Functional Tests Dynamic Gait Index (DGI) Score 22 Functional Gait Assessment Score 20 PT-OP-G Mobility & Gait Start: 09/04/19 08:11 Freq: Status: Active Protocol: Document 09/04/19 09:02 [facility] (Rec: 09/04/19 09:57 [facility] [id number]) OP Gait Assessment Comments Gait Comments minor lat leaning with dec push off PT-OP-M Strength Start: 09/04/19 08:11 Freq: Status: Active Protocol: Document 09/04/19 09:02 [facility] (Rec: 09/04/19 09:57 [facility] [id number]) Hip Strength Hip Manual Muscle Testing Right Flexion (L2) 4+ Good+ Abduction 4- Good- External Rotation 3+ Fair+ Internal Rotation 4+ Good+ Left Flexion (L2) 4 Good Abduction 4- Good- External Rotation 3+ Fair+ Internal Rotation 4+ Good+ Knee Strength Knee Manual Muscle Testing Right Flexion (S2) 5 Normal Extension (L3) 5 Normal Left Flexion (S2) 5 Normal Extension (L3) 5 Normal Ankle/Foot Strength Ankle and Foot Manual Muscle Testing Right Dorsiflexion (L4) 5 Normal Plantarflexion (S1) 5 Normal Left Dorsiflexion (L4) 5 Normal Plantarflexion (S1) 5 Normal Comments PF tested seated PT-OP-Q Treatments Start: 09/04/19 08:11 Freq: Status: Active Protocol: Document 09/04/19 09:02 [facility] (Rec: 09/04/19 09:57 [facility] [id number]) Therapeutic Exercises Standing Exercises minilunge Side bilateral Reps/Minutes 8 tandem stance Side bilateral hip ext Side bilateral Reps/Minutes 10 marching Side bilateral Reps/Minutes 10 Self-Care/Home Management Treatment Education Other Education review of prior HEP and given edu with squats to add chair behind & go lower & have legs hip width apart PT-OP-T Assessment and Plan Start: 09/04/19 08:11 Freq: Status: Active Protocol: Document 09/04/19 09:02 [facility] (Rec: 09/04/19 09:57 [facility] [id number]) Physical Therapy Assessment Rehab Potential Rehabilitation Potential Good Evaluation Complexity Number of Personal Factors/Comorbidities 3 or More Number of Body Systems Impaired 4 or More Clinical Presentation at Evaluation Stable Impairments Impairments Activity Tolerance,Balance, Functional Activities, Functional Mobility,Gait, Strength Goals HEP Cosmetic Maker Goal (LTG) Pt will be indep with HEP LTG Duration 09/04-achieved pt able to demo understanding of given exercises Assessment Summary Assessment Pt presents s/p CVA but is noting no deficits with her functional ability and is able to do her housework, typical activities with inc ease than she had prior to the CVA even. Pt reports she does not want to attend PT partly d/t high copay and would prefer to do exercises at home and has been compliant with HH exercises. She was given HEP today which she understood and was able to demo well. Low fall risk with DGI and SAWANT but dec balance shown with FGA. Pt was educated on this but was still resistant to PT. educated on HEP for home and instructed to call with any questions. DC at this time. Physical Therapy Plan Frequency and Duration Frequency of Treatment 1x/Week Duration of Treatment 1 day Plan of Care Start Date 09/04/19 Plan of Care End Date 09/04/19 Therapeutic Interventions Therapeutic Interventions Balance Training,Home Exercise Program,Self-Care/Home Management,Therapeutic Exercises Discharge Physical Therapy Discharge Reasons Patient Request Discharge Comments Pt does not want to attend PT. Overall her balance and strength is functional for her activity ability.
--- NOTE | 2019-09-04 12:11 | PT.OPPOC ---
Physical, Occupational & Speech Therapy At [facility] Current Diagnoses Cerebral infarction, unspecified (09/04/19) Visit Care Team Role Provider Type MERARI La Primary Care Provider Advanced Ux Lead Specialty: Family Practice Address: [address] [place] [address], [id number] Email: [email or web address] Parth Ying MD Attending Provider Physician Specialty: Internal Medicine Address: [address] [place] [address], [address], [address] Email: [email or web address] Plan Of Care PT-OP-T Assessment and Plan Start: 09/04/19 08:11 Freq: Status: Active Protocol: Document 09/04/19 09:02 [facility] (Rec: 09/04/19 09:57 [facility] [id number]) Physical Therapy Assessment Rehab Potential Rehabilitation Potential Good Evaluation Complexity Number of Personal Factors/Comorbidities 3 or More Number of Body Systems Impaired 4 or More Clinical Presentation at Evaluation Stable Impairments Impairments Activity Tolerance,Balance, Functional Activities, Functional Mobility,Gait, Strength Goals HEP Derrick Barge Operator Goal (LTG) Pt will be indep with HEP LTG Duration 09/04-achieved pt able to demo understanding of given exercises Assessment Summary Assessment Pt presents s/p CVA but is noting no deficits with her functional ability and is able to do her housework, typical activities with inc ease than she had prior to the CVA even. Pt reports she does not want to attend PT partly d/t high copay and would prefer to do exercises at home and has been compliant with HH exercises. She was given HEP today which she understood and was able to demo well. Low fall risk with DGI and DODD but dec balance shown with FGA. Pt was educated on this but was still resistant to PT. educated on HEP for home and instructed to call with any questions. DC at this time. Physical Therapy Plan Frequency and Duration Frequency of Treatment 1x/Week Duration of Treatment 1 day Plan of Care Start Date 09/04/19 Plan of Care End Date 09/04/19 Therapeutic Interventions Therapeutic Interventions Balance Training,Home Exercise Program,Self-Care/Home Management,Therapeutic Exercises Discharge Physical Therapy Discharge Reasons Patient Request Discharge Comments Pt does not want to attend PT. Overall her balance and strength is functional for her activity ability. Plan of Care Dates Plan of Care Start Date 09/04/19 Plan of Care End Date 09/04/19 Electronically Signed by: Marisol Candelario, PT 09/04/19 [id number] Please Sign and Return: I have reviewed this Plan of Care and certify that the skilled therapy services above are required to meet the patient?s needs. Physician Signature Date Printed Name and Credentials Clinical Instructor Signature Printed Name and Credentials
== END 2020-01-17 07:40 ==
LOC: PHYS 08:50
PROVIDERS: PCP Nurse Practitioner; Visit Provider Internal Medicine
DX: I63.9 Cerebral infarction, unspecified (principal)
CPT/HCPCS: 97110; 97161

== ENCOUNTER → 2019-09-06 10:01 | Outpatient (CLI) | payer OTHER, SELFPAY ==
[2019-08-02 05:42] VITALS: BMI 36.3
[2019-09-06 10:42] LABS: BUN Creatinine Ratio 18.9 (6-22); Blood Urea Nitrogen 17 mg/dL (7-17); Estimated Glomerular Filt Rate > 60.0 mL/min (>60)
--- NOTE | 2019-09-06 10:55 | DI.CT.S_ITS ---
PROCEDURE: CT CHEST ABDOMEN W CON INDICATIONS: Previous CT identified sub centimeter pulmonary nodules. TECHNIQUE: After the administration of oral contrast and intravenous contrast, 5 mm thick sections acquired from the lung apices to the iliac crests. 5 mm coronal and sagittal reformats were performed, with additional 7 mm coronal MIP reformats through the lungs. For radiation dose reduction, the following was used: automated exposure control, adjustment of mA and/or kV according to patient size. COMPARISON: [facility], CT, CT CHEST ABD PEL W CON, 08/02/2019, 2:32. FINDINGS: Image quality: Excellent. CHEST: Lungs and pleura: No acute air space opacities. Several scattered pulmonary densities are present, unchanged from prior study, none measuring greater than 5 mm in diameter. There is mild linear scarring in each lung base. No calcified pulmonary nodules or lymph nodes are found. No pleural effusions or pneumothorax. Central and peripheral airways are patent and normal in caliber. Mediastinum: Heart size is normal. No pericardial effusion. No mediastinal or hilar adenopathy by size criteria. Thoracic aorta and central pulmonary arteries are normal in size. Esophagus is normal in caliber. No hiatal hernia. Chest wall: No axillary or supraclavicular adenopathy by size criteria. Thyroid gland appears normal where well seen. ABDOMEN: Solid organs: Liver is normal in size and enhancement. There is a 1.8 cm left lateral hepatic segment simple cyst measuring water density. Gallbladder appears normal. Biliary system is non dilated. Pancreas enhances normally. Spleen is normal in size and enhancement. No adrenal nodules. Kidneys are normal in size and enhancement, without hydronephrosis. Peritoneum and bowel: Bowel loops demonstrate normal wall thickness and caliber. No free fluid or air. Nodes and vessels: No retroperitoneal or mesenteric adenopathy by size criteria. Aorta and inferior vena cava are normal in caliber. Bones: No suspicious bony lesions. No vertebral body compression fractures. Miscellaneous: No ventral hernias. IMPRESSION: Several scattered pulmonary densities are present identical in appearance to those noted on the prior CT scanning from 08/02/19. No new mass or growing mass is present, and given the small size and stability over time no followup is recommended. Simple appearing hepatic cyst left lateral hepatic segment, 1.8 cm in diameter. Dictated by: Gray Vaughan M.D. on 09/06/2019 at 14:45 Approved by: Gray Vaughan M.D. on 09/06/2019 at 14:49
[2019-09-06 10:58] LABS: Alanine Aminotransferase 22 IU/L (<35); Albumin 4.4 g/dL (3.5-5.0); Albumin Globulin Ratio 1.5 (1.0-2.8); Alkaline Phosphatase 64 U/L (38-126); Aspartate Aminotransferase 39 IU/L (14-36); Bilirubin Total 0.6 mg/dL (0.2-1.3); Bilirubin Unconjugated 0.6 mg/dL (0.0-1.1); Cholesterol 122 mg/dL (140-199); Globulin 2.9 g/dL (1.7-4.1); HDL Cholesterol 52 mg/dL (40-60); HEMOLYSIS < 15 (0-50); LDL Cholesterol Calculated 55 mg/dL (<100); Total Protein 7.3 g/dL (6.3-8.2); Triglycerides 77 mg/dL (35-150)
[2019-09-06 11:27] LABS: Free T4, Direct Thyroxine 1.42 ng/dL (0.78-2.19)
[2019-09-06 11:43] LABS: Thyroid Stimulating Hormone 0.92 uIU/mL (0.47-4.68)
== END ==
PROVIDERS: PCP Nurse Practitioner; Visit Provider Nurse Practitioner
DX: Z01.812 Encounter for preprocedural laboratory examination (principal); R91.8 Other nonspecific abnormal finding of lung field; I63.9 Cerebral infarction, unspecified; E03.9 Hypothyroidism, unspecified; K76.89 Other specified diseases of liver
CPT/HCPCS: 36415; 71260; 74160; 80061; 80076; 82565; 84439; 84443; 84520

== ENCOUNTER → 2019-09-25 13:53 | Outpatient (CLI) | payer OTHER, SELFPAY ==
[2019-08-02 05:42] VITALS: BMI 36.3
[2019-09-28 23:09] LABS: ANCA Screen NEGATIVE (NEGATIVE)
[2019-09-29 08:51] LABS: Scleroderma 70 Antibody < 1.0
== END ==
PROVIDERS: PCP Nurse Practitioner; Referring Provider Internal Medicine; Visit Provider Internal Medicine
DX: R91.8 Other nonspecific abnormal finding of lung field (principal)
CPT/HCPCS: 36415; 86021; 86235

== ENCOUNTER 2019-10-21 18:49 | Emergency (ER) | payer OTHER, SELFPAY ==
[2019-08-02 05:42] VITALS: BMI 36.3
[2019-10-21 19:36] VITALS: BP 153/68; PULSE 68; RESP 15; TEMP 36.6; O2SAT 99; BMI 34.7
--- NOTE | 2019-10-21 20:04 | ED_ITS ---
HPI - Fall General Chief Complaint: Fall Stated Complaint: GLF, left knee wound and left hand wound Time Seen by Provider: 10/21/19 19:40 Source: patient Mode of arrival: Family Vehicle Limitations: no limitations History of Present Illness HPI Narrative: 84-year-old female nonsmoker with history of hyperlipidemia and prior stroke presents with the chief complaint of left knee and wrist injury. She was walking and tripped on a piece of uneven concrete and landed on her knee and then wrist. She denies any head neck or back pain. She denies any precipitating such as dizziness, weakness or lightheadedness. She denies any nausea, vomiting or diarrhea. She is able to ambulate but states her knee hurts a bit. Additionally she has an abrasion on the dorsum of her left wrist which hurts particularly with any motion. She denies any other injury is otherwise well and free of complaint. She states very directly that there is nothing broken and does not want x-rays. MD complaint: fall Onset (ago): hour(s) Fall from: standing Fall witnessed: yes, by family Place fall occurred: street Loss of consciousness: none Prolonged down time: no Symptoms prior to fall: none Context: tripped/slipped Location of injury - extremities: Left: hand and knee Severity: mild Related Data Home Medications Medication Instructions Recorded Confirmed Vitamin B-12 1 tab PO DAILY 07/10/19 07/10/19 Vitamin C 1 tab PO DAILY 07/10/19 07/10/19 Vitamin D3 1 cap PO DAILY 07/10/19 07/10/19 multivitamin 1 tab PO DAILY 07/10/19 07/10/19 Previous Rx's Medication Instructions Recorded aspirin 81 mg PO DAILY #30 tab 08/03/19 atorvastatin 40 mg tablet 40 mg PO BEDTIME #90 tab 08/14/19 clopidogrel 75 mg tablet 75 mg PO DAILY #90 tab 08/21/19 levothyroxine 75 mcg tablet 75 mcg PO DAILY #90 tab 10/03/19 Allergies Allergy/AdvReac Type Severity Reaction Status Date / Time Penicillins Allergy Verified 09/04/19 14:19 Review of Systems Constitutional Constitutional: Denies chills, Denies fatigue, Denies fever(s), Denies frequent falls, Denies lethargy and Denies weakness Eyes Eyes: Denies change in vision, Denies eye discharge, Denies irritation and Denies loss of vision ENT Ears, Nose, Mouth, and Throat: Denies change in voice, Denies dizziness, Denies neck pain, Denies sore throat and Denies throat swelling Cardiovascular Cardiovascular: Denies chest pain, Denies irregular heart rhythm, Denies lightheadedness, Denies palpitations, Denies dyspnea, Denies dyspnea on exertion and Denies orthopnea Respiratory Respiratory: Denies cough, Denies dyspnea, Denies dyspnea on exertion and Denies wheezing Gastrointestinal Gastrointestinal: Denies abdominal pain, Denies change in bowel habits, Denies diarrhea, Denies nausea and Denies vomiting Genitourinary Genitourinary: Denies hematuria, Denies flank pain, Denies urinary incontinence and Denies urinary urgency Musculoskeletal Musculoskeletal: Denies back pain, Reports limited range of motion, Denies muscle weakness, Denies neck pain, Denies numbness and Denies tingling Integumentary/Breasts Skin/Breast: Denies pruritus, Denies erythema, Denies rash and Reports wounds Neurologic Neurologic: Denies behavioral changes, Denies confusion, Denies dizziness, Denies frequent falls, Denies loss of vision, Denies numbness, Denies tingling and Denies weakness Psychiatric Psychiatric: Denies anxiety, Denies behavioral changes, Denies confusion, Denies depression, Denies homicidal ideation and Denies suicidal ideation Endocrine Endocrine: Denies fatigue, Denies flushing and Denies palpitations Hematologic/Lymphatic Hematologic/Lymphatic: Denies easy bruising Allergic/Immunologic Allergic/Immunologic: Denies urticaria, Denies throat swelling and Denies wheezing Patient History Medical History Asymmetrical sensorineural hearing loss (Acute) Hypothyroid (Acute) Hypothyroidism (Acute) Superficial thrombophlebitis (Acute) Tinnitus (Acute) Urinary leakage (Acute) Vocal tremor (Acute) Surgical History History of appendectomy (Acute) History of section (Acute) S/P tonsillectomy (Acute) Family History Father Alcoholism Mother Parkinsons disease Sister Heart attack Son History of multiple cerebrovascular accidents (CVAs) Gravely disabled Social History household members: spouse Smoking Status: Never smoker alcohol intake: never Smoking Status: Never smoker Substance Use Type: does not use Exam Narrative Exam Narrative: GENERAL: [84] year old patient appears stated age. Well- nourished, well-developed patient, in mild distress. HEAD: Atraumatic. Normocephalic. EYES: Pupils equal round and reactive. Extraocular motions intact. No scleral icterus. No injection or drainage. ENT: Nose without bleeding, purulent drainage. Throat without erythema, tonsillar hypertrophy or exudate. Airway patent. NECK: Trachea midline. Non tender CARDIOVASCULAR: Regular rate and rhythm without murmurs, gallops, or rubs. RESPIRATORY: Clear to auscultation. Breath sounds equal bilaterally. No wheezes, rales, or rhonchi. GASTROINTESTINAL: Abdomen soft, non-tender, nondistended. EXTREMITIES: Full and minimally painful range of motion of left knee. There is superficial abrasion and some tenderness to palpation overlying the patella. Minimal swelling. No joint line tenderness. No ligamentous instability. Also, superficial abrasion overlying left wrist. No bony tenderness. Full painless range of motion BACK: Nontender without deformity or crepitance. No flank tenderness. NEURO: AOx3. SKIN: No rash or erythema of visible areas other than that which is noted above Initial Vital Signs Initial Vital Signs: Vital Signs Temperature 97.8 F 10/21/19 19:36 Pulse Rate 68 10/21/19 19:36 Respiratory Rate 15 10/21/19 19:36 Blood Pressure 153/68 H 10/21/19 19:36 Pulse Oximetry 99 10/21/19 19:36 Course Orders Ordered: Discontinued Medications Bacitracin (Bacitracin) 1 applic TOP NOW ONE Stop: 10/21/19 20:45 Last Admin: 10/21/19 20:52 Dose: 1 applic Documented by: LINCOLN Diphtheria/Tetanus/Acell Pertussis (Adacel) 0.5 ml IM .ONCE ONE Stop: 10/21/19 20:28 Last Admin: 10/21/19 20:37 Dose: 0.5 ml Documented by: LINCOLN Vital Signs Vital signs: Vital Signs - 8 hr 10/21/19 19:36 Temperature 97.8 F Pulse Rate 68 Respiratory Rate 15 Blood Pressure 153/68 H Pulse Oximetry 99 MDM - Fall MDM Narrative Medical decision making narrative: Patient has full recall of mechanical ground level fall and denies any head neck or back pain. She is able to ambulate without difficulty and history and physical would suggest no imaging is necessary. Patient given return precautions and has had her questions answered to her apparent satisfaction. Discharge Plan Departure Patient Disposition: Home Clinical Impression: Abrasion of knee Qualifiers: Encounter type: initial encounter Laterality: left Qualified Code(s): S80.212A - Abrasion, left knee, initial encounter Abrasion of left wrist Qualifiers: Encounter type: initial encounter Qualified Code(s): S60.812A - Abrasion of left wrist, initial encounter Discharge Date/Time: 10/21/19 20:56 Instructions: How to Prevent Falls Activity Restrictions/Additional Instructions: *You have been diagnosed with [fall with left knee and left wrist region] *What to do: *Take medications as directed: Tylenol for pain *Follow up with your primary care provider in 2-3 days, call for an appointment. Let them know you were seen in the Emergency Department and that we ask that you be seen in follow up *Return to ER if you should have any new, worsening or concerning symptoms Prescriptions: No Action levothyroxine 75 mcg tablet 75 mcg PO DAILY Qty: 90 RF: 3 atorvastatin 40 mg tablet 40 mg PO BEDTIME Qty: 90 RF: 3 clopidogrel 75 mg tablet 75 mg PO DAILY Qty: 90 RF: 3 multivitamin Tablet 1 tab PO DAILY RF: 0 Vitamin B-12 1 tab PO DAILY RF: 0 Vitamin C 1 tab PO DAILY RF: 0 Vitamin D3 1 cap PO DAILY RF: 0 aspirin 81 mg Tablet,Delayed Release (Dr/Ec) 81 mg PO DAILY Qty: 30 RF: 0 Referrals: Priyanka Bauman ARNP [Primary Care Provider] -
[2019-10-21] MEDS: TET,DIPH,PERTUSS(ACELL),VAC/PF 0.5 ML SYRINGE IM (20:37)
[2019-10-21] MEDS: BACITRACIN OINT 0.9 GM PCKT 1 APPLIC TOP (20:52)
[2019-10-21 20:56] VITALS: BP 146/82; PULSE 68; RESP 12; O2SAT 100
== END 2019-10-21 20:56 | disposition home or self-care (01) ==
PROVIDERS: Emergency Provider Emergency Medicine; PCP Nurse Practitioner
DX: S80.212A Abrasion, left knee, initial encounter (principal); S60.812A Abrasion of left wrist, initial encounter; W01.0XXA Fall on same level from slipping, tripping and stumbling without subsequent striking against object, initial encounter; Z23 Encounter for immunization; R07.9 Chest pain, unspecified
CPT/HCPCS: 90471; 93005; 93010; 99283; 90715

== ENCOUNTER → 2020-04-30 14:13 | Outpatient (CLI) | payer OTHER, SELFPAY ==
[2019-08-02 05:42] VITALS: BMI 36.3
[2020-04-30 16:05] LABS: Alanine Aminotransferase 25 IU/L (<35); Albumin Globulin Ratio 1.6 (1.0-2.8); Alkaline Phosphatase 80 U/L (38-126); Aspartate Aminotransferase 39 IU/L (14-36); BUN Creatinine Ratio 16.7 (6-22); Bilirubin Total 0.6 mg/dL (0.2-1.3); Blood Urea Nitrogen 18 mg/dL (7-17); Calcium 9.4 mg/dL (8.4-10.2); Carbon Dioxide 28 mmol/L (22-32); Chloride 101 mmol/L (98-107); Cholesterol 115 mg/dL (140-199); Estimated Glomerular Filt Rate 48.6 mL/min (>60); Globulin 2.5 g/dL (1.7-4.1); Glucose 87 mg/dL (80-110); HDL Cholesterol 67 mg/dL (40-60); HEMOLYSIS < 15 (0-50); LDL Cholesterol Calculated 28 mg/dL (<100); Potassium 4.6 mmol/L (3.4-5.1); Sodium 137 mmol/L (137-145); Total Protein 6.5 g/dL (6.3-8.2); Triglycerides 101 mg/dL (35-150)
[2020-04-30 16:08] LABS: Free T4, Direct Thyroxine 1.28 ng/dL (0.78-2.19)
[2020-04-30 16:22] LABS: Thyroid Stimulating Hormone 1.48 uIU/mL (0.47-4.68)
[2020-04-30 16:41] LABS: Appearance Urine UA CLOUDY; Bilirubin Urine UA NEGATIVE (NEGATIVE); Color Urine UA YELLOW; Glucose Urine UA NEGATIVE (Negative); Ketones Urine UA NEGATIVE (NEGATIVE); Leukocyte Esterase Urine UA 3+ (NEGATIVE); Nitrite Urine UA NEGATIVE (Negative); Occult Blood Urine UA 2+ (Negative); Protein Urine UA NEGATIVE (Negative); Specific Gravity Urine UA 1.015 (1.000-1.035); Urobilinogen Urine UA 0.2 E.U./dL (0.2)
[2020-04-30 16:48] LABS: Creatinine Urine Random 87.7 mg/dL
[2020-04-30 16:51] LABS: Microalbumi Creatinin Ratio Ur 71.8 ug/mg CR (<30); Microalbumin Urine Random 6.3 mg/dL (0-1.6)
[2020-04-30 17:02] LABS: RBC Urine 1-5/HPF (0-5/HPF); pH Urine UA 5.5 (4.5-8.0)
[2020-04-30 17:03] LABS: Amorphous Sediment Urine 1+; Bacteria Urine Moderate (10-30); Culture Indicated Urine Specimen Cultured; Mucus Urine 1+ (Negative); Squamous Epithelial Cell Urine 1-5 /HPF (0-5/HPF); WBC Urine 30-100/HPF (0-5/HPF)
== END ==
PROVIDERS: PCP Nurse Practitioner; Referring Provider Nurse Practitioner; Visit Provider Nurse Practitioner
DX: E03.9 Hypothyroidism, unspecified (principal); E78.5 Hyperlipidemia, unspecified; G47.00 Insomnia, unspecified; I95.9 Hypotension, unspecified; N39.0 Urinary tract infection, site not specified; R30.0 Dysuria
CPT/HCPCS: 36415; 80053; 80061; 81001; 82043; 82570; 84439; 84443; 87077; 87086; 87186

== ENCOUNTER → 2020-12-03 08:48 | Outpatient (CLI) | payer OTHER, SELFPAY ==
[2019-08-02 05:42] VITALS: BMI 36.3
--- NOTE | 2020-12-03 08:49 | DI.US.S_ITS ---
PROCEDURE: US ABDOMEN COMPLETE INDICATIONS: PAIN, DIARRHEA TECHNIQUE: Real-time scanning was performed of the abdominal and retroperitoneal organs, with image documentation. COMPARISON: [facility], CT, CT CHEST ABDOMEN W CON, 09/06/2019, 11:14. [facility], CT, CT CHEST ABD PEL W CON, 08/02/2019, 2:32. FINDINGS: Liver: Liver is normal in size and homogeneous in echotexture. There is a simple hepatic cyst measuring 2.4 x 1.7 x 1.7 cm within the left hepatic lobe. Gallbladder: The gallbladder appears normal. Biliary ducts: Intrahepatic bile ducts are non-dilated. Extrahepatic bile duct caliber measures 3.2 mm. Normal is 6-7 mm or less in diameter, or 10 mm or less post-cholecystectomy. Pancreas: Visualized portions of the pancreas are sonographically normal except for presence of what appears to be a small cyst at the pancreatic head/neck junction, measuring up to 6 x 8 x 11 mm. . Spleen: Spleen is normal in size and homogeneous in echotexture. Kidneys: Kidneys are normal in size and echotexture. Right kidney measures 9.7 cm long; left kidney measures 9.3 cm long. No hydronephrosis or nephrolithiasis. No solid masses. Aorta: Visualized aorta is normal in caliber at less than 3 cm. Iliacs: Proximal common iliac arteries are normal in caliber at less than 2.5 cm. IVC: Intrahepatic inferior vena cava is patent. Miscellaneous: No free abdominal fluid. IMPRESSION: Small ovoid pancreatic head/neck cyst measuring up to 6 x 8 x 11 mm. This structure could be further assessed and characterized in more detail utilizing contrast-enhanced MR scanning. It was not identified on CT scanning 08/02/19 and 09/06/19 CT scanning that included the pancreas. A newly identified small cyst of this nature generally should be followed with MR scanning with contrast. Side branch intraductal papillary mucinous neoplasm (IPMN) is a potential cause of such an appearance. Dictated by: Gray Vaughan M.D. on 12/03/2020 at 11:02 Approved by: Gray Vaughan M.D. on 12/03/2020 at 11:08
[2020-12-03 10:01] LABS: Alanine Aminotransferase 26 IU/L (<35); Albumin 4.2 g/dL (3.5-5.0); Albumin Globulin Ratio 1.5 (1.0-2.8); Alkaline Phosphatase 71 U/L (38-126); Amylase 111 U/L (30-110); Aspartate Aminotransferase 42 IU/L (14-36); Bilirubin Total 0.4 mg/dL (0.2-1.3); Blood Urea Nitrogen 22 mg/dL (7-17); Calcium 9.3 mg/dL (8.4-10.2); Carbon Dioxide 28 mmol/L (22-32); Chloride 103 mmol/L (98-107); Estimated Glomerular Filt Rate 50.1 mL/min (>60); Globulin 2.8 g/dL (1.7-4.1); Glucose 94 mg/dL (80-110); HEMOLYSIS < 15 (0-50); Lipase 145 U/L (23-300); Potassium 3.8 mmol/L (3.4-5.1); Sodium 139 mmol/L (137-145)
[2020-12-03 10:27] LABS: Thyroid Stimulating Hormone 0.755 uIU/mL (0.47-4.68)
== END ==
PROVIDERS: PCP Nurse Practitioner; Referring Provider Nurse Practitioner; Visit Provider Nurse Practitioner
DX: R19.8 Other specified symptoms and signs involving the digestive system and abdomen (principal); K86.2 Cyst of pancreas; R10.9 Unspecified abdominal pain; R19.7 Diarrhea, unspecified
CPT/HCPCS: 36415; 76700; 80053; 82150; 83690; 84443

== ENCOUNTER → 2020-12-13 07:08 | Outpatient (CLI) | payer OTHER, SELFPAY ==
[2019-08-02 05:42] VITALS: BMI 36.3
--- NOTE | 2020-12-13 07:09 | DI.MRI.S_ITS ---
PROCEDURE: MR ABDOMEN WO/W CON INDICATIONS: Cyst seen on pancreas on US, amylase elevated TECHNIQUE: Coronal HASTE, axial 2D FLASH in- and [id number]; axial breath-hold T2 FSE with fat saturation from the hepatic dome to the iliac crests. Oblique coronal thin-slice and radial thick slab HASTE through the biliary system. Dynamic axial VIBE during administration of contrast. Post-contrast coronal VIBE or 2D FLASH with fat saturation from the hepatic dome to the iliac crests. Optional diffusion weighted imaging and ADC may be performed. COMPARISON: [facility], CT, CT CHEST ABDOMEN W CON, 09/06/2019, 11:14. [facility], US, US ABDOMEN COMPLETE, 12/03/2020, 8:54. FINDINGS: Image quality: There is mild motion artifact. Pancreas and biliary system: Within the pancreatic head, there is a thin walled cyst measuring approximately 1.2 x 0.8 x 0.5 cm on series 3, image 10 and series 4, image 19. There is no definite associated internal enhancement following contrast administration. This cyst demonstrates probable communication with the main pancreatic duct which is nondilated. The findings most likely represent a side branch intraductal papillary mucinous neoplasm (IPMN). Elsewhere, no discrete solid pancreatic mass identified. No peripancreatic fat stranding or fluid to suggest acute pancreatitis. No intra or extrahepatic biliary ductal dilatation. The gallbladder appears within normal limits without gallstones. Solid organs: There is a lobulated cyst within the left hepatic lobe measuring up to 2.5 x 1.9 cm without evidence of a solid internal component. Spleen is normal in size and enhancement. No adrenal nodules. Kidneys demonstrate no hydronephrosis. Nodes and vessels: No retroperitoneal or mesenteric adenopathy by size criteria. Aorta and inferior vena cava are normal in size. Bowel and peritoneum: Visualized bowel loops are normal in caliber throughout. No free fluid. Lung bases: No basal pleural effusions. Heart size is normal. Bones and soft tissues: No ventral hernias. Bone marrow is normal in overall signal. IMPRESSION: 1. 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 Given apparent change compared to prior CT of 09/06/2019, a follow-up study is recommended in 12 months to demonstrate stability. 2. Left lobe hepatic cyst redemonstrated. Dictated by: Yassine Flores M.D. on 12/13/2020 at 13:41 Approved by: Yassine Flores M.D. on 12/13/2020 at 14:05
== END ==
PROVIDERS: PCP Nurse Practitioner; Referring Provider Nurse Practitioner; Visit Provider Nurse Practitioner
DX: K86.2 Cyst of pancreas (principal); R74.8 Abnormal levels of other serum enzymes; R93.5 Abnormal findings on diagnostic imaging of other abdominal regions, including retroperitoneum; K76.89 Other specified diseases of liver
CPT/HCPCS: 74183